=== PATIENT | female | born 1955 | race Caucasian/White ===

== ENCOUNTER → 2019-07-02 10:29 | Outpatient (CLI) | payer MEDICARE, SELFPAY ==
--- NOTE | ~2019-07-02 | MM_ITS ---
EXAMINATION: MM screening deborah RT w smooth HISTORY: Screening right mammogram, history of left mastectomy TECHNIQUE: Craniocaudal and mediolateral oblique 3-D tomosynthesis images were obtained and synthetic 2-D images were generated. CAD analysis was submitted and interpreted. COMPARISON: 06/26/2018, 06/30/2017, 06/14/2016 BREAST PARENCHYMAL COMPOSITION: There are scattered areas of fibroglandular density. FINDINGS: There is no evidence of suspicious mass, calcification, or architectural distortion to sugg est malignancy. There has been no suspicious interval change. IMPRESSION: 1. No mammographic evidence of malignancy. 2. Recommend routine screening mammography in one year. BI-RADS Category 1: Negative Reviewed, dictated and finalized at location A. SLATOR/INTERPRETER
== END ==
PROVIDERS: Visit Provider Nurse Practitioner Obstetrics & Gynecology
DX: Z12.31 Encounter for screening mammogram for malignant neoplasm of breast (principal)
CPT/HCPCS: 77063; 77067

== ENCOUNTER 2020-05-22 10:12 | Emergency (ER) | payer MEDICARE, SELFPAY ==
[2020-05-22] VITALS (14 sets, daily range): BP systolic 110–138; BP diastolic 58–82; PULSE 62–98; RESP 11–27; TEMP 36.6–36.8; O2SAT 94–100
--- NOTE | ~2020-05-22 | XR_ITS ---
EXAMINATION: XR humerus RT, XR shoulder RT min 2V EXAM DATE: 05/22/2020 10:43 INDICATION: Initial encounter following injury, with pain of the right humerus, shoulder. TECHNIQUE: Frontal, oblique projections of the right shoulder. 2 projections of the right humerus. T here are no prior studies for comparison. FINDINGS: There is anterior inferior and medial humeral head dislocation. No acute fracture line edwin ntified although sometimes there can be an impaction deformity of the humeral head. The shaft of the humerus is unremarkable. 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 IMPRESSION: 1. Anterior inferior, and medial dislocation of the right humeral head. Reviewed, dictated and finalized at location B. LLIGENCE ANALYST IMPRESSION: 1. Anterior inferior, and medial dislocation of the right humeral head.
--- NOTE | ~2020-05-22 | XR_ITS ---
EXAMINATION: XR shoulder RT min 2V EXAM DATE: 05/22/2020 11:51 INDICATION: post reduction. TECHNIQUE: Frontal, Y projections right shoulder. Comparison is made to prior examination from right shoulder. FINDINGS: Previously seen dislocation has been reduced, humeral head is in expected position. Possib le Hill-Sachs compression deformity. Moderate acromioclavicular osteoarthritis. IMPRESSION: Status post right humeral head reduction. Possible Hill-Sachs impaction fracture. Reviewed, dictated and finalized at location B. D ACTIVATION MANAGER IMPRESSION: Status post right humeral head reduction. Possible Hill-Sachs imp action fracture.
[2020-05-22] MEDS: ONDANSETRON INJ 4 MG/2 ML VIAL ×2 (10:50→13:14)
[2020-05-22] MEDS: LORazepam INJ (*CRX) 2 MG/ML VIAL (10:50)
[2020-05-22] MEDS: HYDROmorphone HCL INJ (*CRX) 1 MG/ML SYR (10:50)
[2020-05-22] MEDS: PROPOFOL IV EMULSION 200 MG/20 ML VIAL 100 MG IV PUSH (11:25)
--- NOTE | 2020-05-22 11:32 | PC.NURSE ---
consent signed and placed in chart propofal 50 mg first dose at 1125 2nd dose at 1127 shouolder reduced at 1128
--- NOTE | 2020-05-22 11:35 | PC.NURSE ---
pt maintaining airway, showing spontaneous respirations, no interventions needed at this time
--- NOTE | 2020-05-22 12:18 | ED.GENADULT ---
HPI - General Adult General Chief complaint: Extremity Injury, Upper <Zac Hobbs PA-C - Last Filed: 05/22/20 12:28> Stated complaint: FALL,L SHOULDER PAIN <Zac Hobbs PA-C - Last Filed: 05/22/20 12:28> Time Seen by Provider: 05/22/20 10:20 <Zac Hobbs PA-C - Last Filed: 05/22/20 12:28> Source: patient, family and EMS <Zac Hobbs PA-C - Last Filed: 05/22/20 12:28> Mode of arrival: EMS <Zac Hobbs PA-C - Last Filed: 05/22/20 12:28> Limitations: no limitations <Zac Hobbs PA-C - Last Filed: 05/22/20 12:28> History of Present Illness HPI narrative: Patient 65-year-old female who presents to emergency department for evaluation of right shoulder injury patient tripped while walking landing injuring the right shoulder denies other injuries or complaints specifically no syncope loss of consciousness patient notes severe pain to the right shoulder patient was given fentanyl in route with minimal improvement patient also notes nausea. <Zac Hobbs PA-C - Last Filed: 05/22/20 12:28> Related Data Home medications: Home Medications Medication Instructions Recorded Confirmed cholecalciferol (vitamin D3) 50 50 mcg PO DAILY 07/02/19 12/24/19 mcg (2,000 unit) capsule <Zac Hobbs PA-C - Last Filed: 05/22/20 12:28> Allergies/adverse reactions: Allergies Allergy/AdvReac Type Severity Reaction Status Date / Time hydromorphone Allergy Unknown hypotension Verified 05/22/20 10:16 morphine AdvReac Mild Other Verified 05/22/20 10:16 <Zac Hobbs PA-C - Last Filed: 05/22/20 12:28> Review of Systems Review of Systems: All systems reviewed & are unremarkable except as noted in HPI and below <Zac Hobbs PA-C - Last Filed: 05/22/20 12:28> PMFSH Past Medical History Medical History: Medical History Combined hyperlipidemia Essential (primary) hypertension History of breast cancer History of diverticulitis OAB (overactive bladder) Vitamin D deficiency <Zac Hobbs PA-C - Last Filed: 05/22/20 12:28> Surgical History Surgical History: Surgical History H/O mastectomy History of colon surgery <Zac Hobbs PA-C - Last Filed: 05/22/20 12:28> Family History Family History: Family History (Updated 01/06/14 @ 07:13 by DOCTOR UNKNOWN) Mother Hypertension Father Family history of celiac disease Other Family history of neuropathy <Zac Hobbs PA-C - Last Filed: 05/22/20 12:28> Social History Social History: Social History Smoking status: Never smoker Alcohol intake: current Gender identity (if verbalized by the patient): Female <Zac Hobbs PA-C - Last Filed: 05/22/20 12:28> Exam Narrative: Exam Narrative: GENERAL: Well-appearing, well-nourished, and in no acute distress. HEAD: Normocephalic, atraumatic. EYES: PERRLA and EOMI. ENT: Nares clear, no rhinorrhea or epistaxis. Mucous membranes moist. NECK: Supple. No adenopathy or masses. CHEST: Clear to auscultation. No respiratory distress. No wheezes rales or rhonchi HEART: Regular rate and rhythm. No murmur heard. Normal peripheral pulses. ABDOMEN: Soft, nontender, nondistended EXTREMITIES: Deformity at the shoulder remainder of extremity nontender SKIN: Warm, dry, no rash. NEURO: No focal deficits. Alert and oriented x3. Neurovascularly intact. Capillary refill less than 3 seconds uncomfortable PSYCH: Normal mood and affect. <Zac Hobbs PA-C - Last Filed: 05/22/20 12:28> Course Course Emergency Course: Patient in the room aware of case findings treatment plan diagnosis resting comfortably post reduction patient was sedated with no complications <Zac Hobbs PA-C - Last Filed: 05/22/20 12:28> HOSTESS HOST/PA Physicia
== END 2020-05-22 13:16 | disposition home or self-care (01) ==
PROVIDERS: Emergency Provider Emergency Medicine; PCP Family Medicine
DX: S43.014A Anterior dislocation of right humerus, initial encounter (principal); S43.034A Inferior dislocation of right humerus, initial encounter; E78.2 Mixed hyperlipidemia; I10 Essential (primary) hypertension; Z85.3 Personal history of malignant neoplasm of breast; N32.81 Overactive bladder; E55.9 Vitamin D deficiency, unspecified; Z90.10 Acquired absence of unspecified breast and nipple; W01.0XXA Fall on same level from slipping, tripping and stumbling without subsequent striking against object, initial encounter
CPT/HCPCS: 23650; 73030; 73060; 96374; 96375; 96376; 99285; J1170; J2060; J2405; J2704

== ENCOUNTER 2020-06-30 13:58 | Outpatient (CLI) | payer MEDICARE, SELFPAY ==
--- NOTE | 2020-06-30 09:13 | ECG_ITS ---
Measurements Intervals [place] Rate: 64 P: 48 NM: 169 QRS: -1 QRSD: 81 T: 41 QT: 386 QTc: 400 Interpretive Statements SINUS RHYTHM POSSIBLE LEFT ATRIAL ENLARGEMENT INCOMPLETE RIGHT BUNDLE BRANCH BLOCK DELAYED PRECORDIAL R/S TRANSITION BASELINE ARTIFACT- I, II, III, AVR, AVL, AVF BORDERLINE ECG Electronically Signed On 06-30-2020 12:00:58 SHINGLE SAWYER by Devin Narvaez D.O.
[2020-06-30 10:32] LABS: INR 0.8; Prothrombin Time 11.9 Seconds (11.1-14.7)
[2020-06-30 10:33] LABS: Partial Thromboplastin Time 26.8 SECONDS (22.3-36.8)
== END 2020-06-30 13:59 | disposition home or self-care (01) ==
LOC: ANHSURGERY 07-24 13:58
PROVIDERS: PCP Family Medicine; Visit Provider Urology
DX: Z01.818 Encounter for other preprocedural examination (principal); I10 Essential (primary) hypertension
CPT/HCPCS: 36415; 85610; 85730; 86850; 86900; 86901; 87086; 93005

== ENCOUNTER → 2020-07-07 00:12 | Outpatient (CLI) | payer MEDICARE, SELFPAY ==
[2020-07-07 22:51] LABS: SARS-CoV-2 RNA PCR Negative
== END ==
PROVIDERS: PCP Family Medicine; Visit Provider Urology
DX: Z01.812 Encounter for preprocedural laboratory examination (principal); Z20.822 Contact with and (suspected) exposure to COVID-19
CPT/HCPCS: C9803; U0003; U0005

== ENCOUNTER 2020-07-10 00:31 | Day surgery (SDC) | payer MEDICARE, SELFPAY ==
[2020-06-30 08:21] VITALS: BMI 28.3
--- NOTE | 2020-07-01 09:26 | P.HP_ITS ---
H&P: HPI History of Present Illness Date/Time: 07/01/20 09:26 Chief Complaint: POP.NIKA Narrative: Ludy Woodson is a 65 year old female with POP/NIKA Review of Systems Review of Systems: All systems reviewed & are unremarkable except as noted in HPI and below PMFSH Past Medical History Medical History Combined hyperlipidemia Essential (primary) hypertension History of breast cancer History of diverticulitis Hypothyroidism, unspecified OAB (overactive bladder) Vitamin D deficiency Surgical History Surgical History H/O mastectomy left sided History of colon surgery Family History Family History Mother Hypertension Father Family history of celiac disease Other Family history of neuropathy Social History Social History Smoking status: Never smoker Alcohol intake: current Substance use: never Additional living arrangements comments: Gender identity (if verbalized by the patient): Female Spiritual care concerns: No Meds Home Medications and Allergies Home Medications Medication Instructions Recorded Confirmed Type cholecalciferol (vitamin D3) 50 50 mcg PO DAILY 07/02/19 06/30/20 History mcg (2,000 unit) capsule hydrocodone-acetaminophen [[place]] 1 tablet PO Q6H PRN #10 tablet 05/22/20 06/30/20 Rx amlodipine 5 mg PO HS 06/30/20 06/30/20 History levothyroxine 75 mcg PO QAM 06/30/20 06/30/20 History lisinopril 20 mg PO QAM 06/30/20 06/30/20 History lovastatin 10 mg PO HS 06/30/20 06/30/20 History magnesium oxide 400 mg PO DAILY 06/30/20 06/30/20 History metoprolol tartrate 100 mg PO HS 06/30/20 06/30/20 History Allergies Allergy/AdvReac Type Severity Reaction Status Date / Time No Known Allergies Allergy Verified 06/30/20 08:13 Exam Const: General: cooperative and healthy appearing HENMT: Head: normal to inspection Eyes: General: appearance normal, both eyes and all related structures Resp: Effort & Inspection: normal respiratory effort and able to speak in complete sentences GI: Inspection: normal to inspection : Bimanual exam- vagina & uterus: Uterus displaced Bimanual Exam- Adnexa, other: cystocele Skin: General skin exam: normal color Neuro: General: patient oriented x3 Assessment and Plan Assessment and plan (1) Uterine prolapse: Code(s): N81.4 - Uterovaginal prolapse, unspecified Status: Acute Assessment and Plan: robotic Colpopexy (2) NIKA (stress urinary incontinence, female): Code(s): N39.3 - Stress incontinence (female) (male) Status: Acute Assessment and Plan: urethral sling
[2020-07-10] VITALS (17 sets, daily range): BP systolic 94–145; BP diastolic 51–71; PULSE 62–78; RESP 10–16; TEMP 36.2–36.6; O2SAT 94–100; BMI 27.2
--- NOTE | 2020-07-10 06:53 | WPDANESEPPF ---
Anes - Initial Pre Proc Eval Procedure: Operation Date: 07/10/20 07:30 Proposed Procedures p Robotic Sacrocolpopexy With Possible Sling - Emir Azevedo MD s Laparoscopic Supracervical Hysterectomy With Bilateral Salpingo-Oophorectomy - Ion Lindsey MD Date/Time: 07/10/20 06:53 Surgeon: Emir Azevedo MD Pre Op Diagnosis: Cystocele, Uterine Prolapse Patient Data Age: 65 Gender: F Height: 1.55 m Weight: 67.9 kg Allergies Allergy/AdvReac Type Severity Reaction Status Date / Time No Known Allergies Allergy Verified 07/10/20 06:20 Home Medications Medication Instructions Recorded Confirmed Type cholecalciferol (vitamin D3) 50 50 mcg PO DAILY 07/02/19 07/10/20 History mcg (2,000 unit) capsule hydrocodone-acetaminophen [[place]] 1 tablet PO Q6H PRN #10 tablet 05/22/20 07/10/20 Rx amlodipine 5 mg PO HS 06/30/20 07/10/20 History levothyroxine 75 mcg PO QAM 06/30/20 07/10/20 History lisinopril 20 mg PO QAM 06/30/20 07/10/20 History lovastatin 10 mg PO HS 06/30/20 07/10/20 History magnesium oxide 400 mg PO DAILY 06/30/20 07/10/20 History metoprolol tartrate 100 mg PO HS 06/30/20 07/10/20 History ECG: Date of Service: 06/30/20 Procedure(s): CA 12 lead EKG Accession Number(s): [id number] cc: ~ Measurements Intervals [place] Rate: 64 P: 48 SD: 169 QRS: -1 QRSD: 81 T: 41 QT: 386 QTc: 400 Interpretive Statements SINUS RHYTHM POSSIBLE LEFT ATRIAL ENLARGEMENT INCOMPLETE RIGHT BUNDLE BRANCH BLOCK DELAYED PRECORDIAL R/S TRANSITION BASELINE ARTIFACT- I, II, III, AVR, AVL, AVF BORDERLINE ECG Electronically Signed On 06-30-2020 12:00:58 ENTREPRENEURSHIP PROGRAM DIRECTOR by Devin Narvaez D.O. Patient hx anesthesia problems: none Family hx anesthesia problems: none PMFSH Past Medical History Medical History Combined hyperlipidemia Essential (primary) hypertension History of breast cancer History of diverticulitis Hypothyroidism, unspecified OAB (overactive bladder) Vitamin D deficiency Surgical History Surgical History H/O mastectomy left sided History of colon surgery Family History Family History Mother Hypertension Father Family history of celiac disease Other Family history of neuropathy Social History Social History Smoking status: Never smoker Alcohol intake: current Substance use: never Living arrangements: with family Additional living arrangements comments: Gender identity (if verbalized by the patient): Female Spiritual care concerns: No Anes - Eval Final PreProcedure Day of Procedure 07/10/20 06:53 Patient weight: overweight Heart: regular rate and rhythm Lungs: clear to auscultation and normal air movement Airway: Mallampati scale class II Neurological: alert and oriented Last oral intake: >/= 8 hours ASA classification: III Emergent: no Anesthetic plan: proceed Anesthesia type and monitoring: general ETT Informed Consent: The patient's anesthetic plan and its attendant risks and benefits were discussed with the patient/family/POA. Questions were solicited and answers provided to the satisfaction of the patient/family/POA.
[2020-07-10] MEDS: ACETAMINOPHEN 500 MG TABLET 1000 MG PO (07:11)
[2020-07-10] MEDS: LACTATED RINGERS 1,000 ML 30 ML IV CONT ×2 (07:11→10:26)
[2020-07-10] MEDS: KETOROLAC 15 MG/ML VIAL (*BKC) IV PUSH (07:12)
--- NOTE | 2020-07-10 07:19 | WPDHPUPDATE1 ---
History and Physical Update Update Date/Time: 07/10/20 07:19 History and Physical has been reviewed, including an updated exam of the patient. There are NO changes in the patient's condition. Risks, benefits, and alternatives have been discussed and questions answered. Patient agrees to proceed with procedure.
--- NOTE | 2020-07-10 07:23 | WPDHPUPDATE1 ---
History and Physical Update Update Date/Time: 07/10/20 07:23 History and Physical has been reviewed, including an updated exam of the patient. There are NO changes in the patient's condition. Risks, benefits, and alternatives have been discussed and questions answered. Patient agrees to proceed with procedure.
[2020-07-10] MEDS: metroNIDAZOLE 500 MG/ISO 100ML 500 MG/100 ML BAG 100 MG IVPB (07:30)
[2020-07-10] MEDS: ceFAZolin 2 GM/D5W 50 ML 2 GM/50 ML BAG IVPB (07:49)
[2020-07-10] MEDS: BUPIVACAINE/EPINEPHRINE 0.25% 50 ML VIAL 30 ML INFILTRATE (08:31)
--- NOTE | 2020-07-10 09:00 | P.OP_ITS ---
Procedure Note - Detailed Date of procedure: 07/10/20 Pre-op diagnosis: Cystocele, Uterine Prolapse Post-op diagnosis: same Procedure performed: Laparoscopic supracervical hysterectomy with bilateral salpingo oophorectomy. Description of procedure: The trocars were placed by Dr. Azevedo. An additional trocars placed in the left lower quadrant trocar site. A 5 mm trocar placed through a 5 mm skin incision made with a scalpel. It was done under direct visualization of the scope. The ureters were identified bilaterally after the patient was placed in a Trendelenburg position. The infundibulopelvic ligaments were isolated, cauterized and transected with LigaSure cautery in the area of the ovary. Moving around the ovary, in a bilateral fashion, the para ovarian tissue was cauterized, transected with LigaSure. The round ligament was cauterized and transected with LigaSure cautery. This was done in a bilateral fashion. The broad ligament was cauterized and transected in a stepwise fashion down to the uterine arteries. This was done in a bilateral fashion as well. The superior branches of the uterine artery were cauterized and transected with LigaSure cautery. Cervix was then transected in the upper 3rd of the body of t he cervix using monopolar cautery. The uterus was placed in endobag and sent off to the side in the abdomen. Anesthesia: GETA Surgeon: Ion Lindsey MD Estimated blood loss (mL): 20 Drains: No Packing: No Pathology: yes Complications: No immediate complications Condition: stable Disposition: PACU Findings: Atrophic uterus and ovaries. Normal appearing fallopian tubes. The ureters were clearly identified.
--- NOTE | 2020-07-10 10:24 | PM.PROC ---
Procedure Note - Detailed Date of procedure: 07/10/20 Pre-op diagnosis: Cystocele, Uterine Prolapse Uterine prolapse Stress urinary incontinence Post-op diagnosis: same Procedure performed: Robotic assisted laparoscopic sacral colpopexy Mid urethral sling (transobturator sling) Cystoscopy Description of procedure: Anesthesia: General She understood the risks of bleeding, infection, damage to surrounding organs, bowel injury, bowel obstruction, recurrence of prolapse, persistent or recurrent stress incontinence, mesh related complications including exposure and extrusion, diskitis, postoperative voiding dysfunction including incontinence and retention, hip and leg pain, dyspareunia, and she agrees to proceed. She was correctly identified and informed consent was obtained. She was brought to the operating room. She was given general anesthesia. She was placed in the dorsal lithotomy position. All pressure points were padded. She was given appropriate perioperative antibiotics. Time-out performed. I anesthetized the skin 3 fingerbreadths cephalad to the umbilicus. I incised the skin. I dissected down to locate the fascia. I grasped the fascia with Adam clamps. I entered the fascia sharply. I placed Vicryl sutures for later fascial closure. I placed a midline trocar. Under direct vision 2 additional trocars were placed on the right and left upper quadrant. She was placed in steep Trendelenburg and the robot was docked. Her stretching press operator performed the portion of the procedure and left the specimen and a sac which was extracted. I then sat at the console. With the Sizer in the vagina I created a plane on the anterior and posterior vaginal wall. This was done for several cm taking great care not to injure the vagina, bladder, or rectum. I introduced the mesh into the abdomen. I sewed the anterior leaflet of mesh on the anterior vaginal wall and posterior leaf of the mesh on the posterior vaginal wall with several Weston-Trace sutures taking great care not to go through and through. I then reflected the colon laterally. I opened up the posterior peritoneum over the sacral promontory. I carried this into the cul-de-sac. I kept the ureters lateral. I freed up the edges. I located the anterior longitudinal ligament of the sacrum. I tensioned the mesh appropriately. I did a vaginal exam to ensure prolapse reduction without undue tension. I then sewed the proximal leaflet of mesh onto the ligament with 3 sutures of 2 0 Weston-Trace. Next the mass was meticulously retroperitonealized with a running 2 0 Monocryl suture. I allowed the colon to go back into its normal anatomic location. There is no signs of any impingement or stricturing. The abdomen was exited. Fascia was closed. Skin was closed with Monocryl and glue. She was repositioned and prepped for urethral sling. I marked out the thigh incisions. I anesthetize the skin and made those incisions. I anesthetized the anterior vaginal wall over the mid urethra. I made a 1 cm incision. I dissected out laterally taking great care not to injure the urethra or the vaginal wall. I next passed the helical trocars to 1st on the left and then on the right. This was done from the thigh incision towards the vaginal incision. The sling was connected to the trocars and brought out through the thigh incision. I tensioned the sling appropriately. I cut and removed the plastic sheaths. I then closed the incision with 2 0 Vicryl. I then performed cystoscopy. The bladder is examined. There was no tumors, stones, foreign bodies, surgical artifact. Both ureters were seen to excrete clear yellow urine. There is no surgical artifact in the urethra. Catheter was then replaced. She was awakened and transferred to the PACU in stable condition. Anesthesia: GLMA Surgeon: Emir Azevedo MD Drains: Yes (Echeverria catheter) Packing: Yes Complications: No immediate complications Condition: stable Disposition: PACU
--- NOTE | 2020-07-10 12:22 | SUR.PHASEI ---
1210 - dr. olivo at bedside assessing EKG reading. no orders received at this time.
[2020-07-10] MEDS: ONDANSETRON INJ 4 MG/2 ML VIAL IV PUSH (12:38)
[2020-07-10] MEDS: fentaNYL CITRATE INJ (*CRX) 100 MCG/2 ML VIAL 25 MCG IV PUSH ×2 (12:42→12:46)
[2020-07-10] MEDS: oxyCODONE HCL (*CRX) 5 MG TAB IR PO (14:30)
--- NOTE | 2020-07-10 16:52 | SUR.PHASEII ---
1530 pt has been to the bathroom twice and has voided each time. pt feels well enough to go home, pt meets anesthesia requierement to be discharged
== END 2020-07-10 15:55 | disposition home or self-care (01) ==
PROVIDERS: Obstetrics & Gynecology; PCP Family Medicine; Visit Provider Urology
PROC: (CPT 57425; principal; 2020-07-10 07:30)
PROC: 0UT9FZZ Resection of Uterus, Via Natural or Artificial Opening With Percutaneous Endoscopic Assistance (ICD-10-PCS; CPT 58542; 2020-07-10 07:30)
DX: N81.4 Uterovaginal prolapse, unspecified (principal); N39.3 Stress incontinence (female) (male); N32.81 Overactive bladder; N83.8 Other noninflammatory disorders of ovary, fallopian tube and broad ligament; D25.9 Leiomyoma of uterus, unspecified; E03.9 Hypothyroidism, unspecified; Z85.3 Personal history of malignant neoplasm of breast; E55.9 Vitamin D deficiency, unspecified; I10 Essential (primary) hypertension; E78.2 Mixed hyperlipidemia; Z87.19 Personal history of other diseases of the digestive system; I45.10 Unspecified right bundle-branch block
CPT/HCPCS: 58542; 57425; 57288; S2900; 88307; A9270; C1771; C1781; C9803; J0690; J1100; J1170; J1885; J2250; J2405; J2704; J2710; J3010; J7030; J7120; U0003; U0005

== ENCOUNTER 2020-09-08 10:38 | Observation (INO) | payer MEDICARE, SELFPAY ==
[2020-09-08] VITALS (9 sets, daily range): BP systolic 100–118; BP diastolic 49–92; PULSE 75–87; RESP 15–20; TEMP 36.8–37.5; O2SAT 96–100; BMI 27.4
--- NOTE | ~2020-09-08 | XR_ITS ---
EXAMINATION: XR chest 1V portable DATE: 09/08/2020 11:27 INDICATION: Fever. Shortness of breath. TECHNIQUE: A single frontal view of the chest was obtained. COMPARISON: None. FINDINGS: There is mild scarring at the lung apices. No pleural effusion or pneumothorax. The heart s ize is normal. IMPRESSION: 1. Mild scarring at the lung apices. Reviewed, dictated and finalized at location A.
--- NOTE | ~2020-09-08 | CT_ITS ---
EXAMINATION: CT abdomen pelvis w con EXAM DATE: 09/08/2020 12:12 INDICATION: Diarrhea, fever. History diverticulitis. TECHNIQUE: Spiral CT of the abdomen and pelvis was performed following intravenous injection of 100 m L Omnipaque 350. Axial, coronal and sagittal images of the abdomen and pelvis were reviewed. The do se-length product (DLP) for this examination was 441.54 mGy-cm. The exposure was tailored according to patient size (auto mA exposure control), and iterative reconstruction (ASIR) was used as additiona l dose reduction technique. Comparison is made to prior examination from 07/21/2017. FINDINGS: There are 2 liver cysts, largest at the dome measuring 1.6 cm. The liver, spleen, adrenal glands and pancreas are otherwise unremarkable. Gallbladder is unremarkable. No biliary obstruction . Portal and splenic veins are patent. Kidneys enhance symmetrically. There is no hydronephrosis. Uterine atrophy or partial hysterectomy. The bladder is unremarkable. There is no retroperitoneal or pelvic lymphadenopathy. There is mild scattered arteriosclerotic disease. The appendix is normal. There is mild to moderate scattered colonic diverticulosis. There is no yas cent inflammatory change to suggest diverticulitis. The stomach and small bowel are unremarkable. Th ere is expected amount of colonic stool. No free intraperitoneal gas. The heart is normal in size . There are no pericardial or pleural effusions. The lung bases are unremarkable. There are no ost eoblastic or osteolytic lesions identified. Again left breast implant with capsular rupture. IMPRESSION: 1. No acute intra-abdominal findings. 2. Mild to moderate colonic diverticulosis. 3. Left breast implant with evidence of capsular rupture, unchanged. Reviewed, dictated and finalized at location A.
[2020-09-08 11:10] LABS: Basophils Percent Auto 0.3 % (0.2-1.2); Eosinophils Absolute Auto 0.3 K/mm3 (0-0.3); Eosinophils Percent Auto 8.3 % (0-4.4); Hematocrit 36.4 % (37.0-47.0); Hemoglobin 12.2 g/dL (12.0-15.0); Immature Granulocyte Absolute 0.01 K/mm3 (0.00-0.031); Immature Granulocyte Percent A 0.3 % (0-0.5); Lymphocytes Absolute Auto 0.81 K/mm3 (0.9-3.2); Lymphocytes Percent Auto 23.2 % (18.3-44.2); Mean Corpuscular HGB Conc 33.5 g/dl (32-36); Mean Corpuscular Hemoglobin 31.5 pg (26-34); Mean Corpuscular Volume 94.1 fl (80-100); Mean Platelet Volume 10.3 fl (7.4-10.4); Monocytes Absolute Auto 0.3 K/mm3 (0.1-0.6); Monocytes Percent Auto 9.5 % (2.6-8.5); Neutrophils Percent Auto 58.4 % (45.5-73.1); Platelet Count Result 123 k/mm3 (150-375); Red Blood Count 3.87 M/mm3 (4.2-5.4); Red Cell Distribution Width 12.6 % (11.5-14.5); White Blood Count 3.5 K/mm3 (4.5-10.0)
--- NOTE | 2020-09-08 11:16 | ED.FEVER ---
HPI - Fever General Chief Complaint: Fever <JA Pace Last Filed: 09/08/20 14:05> Stated Complaint: fever and chills <JA Pace Last Filed: 09/08/20 14:05> Time Seen by Provider: 09/08/20 11:03 <JA Pace Last Filed: 09/08/20 14:05> Source: patient <JA Pace Last Filed: 09/08/20 14:05> Mode of arrival: ambulatory <JA Pace Last Filed: 09/08/20 14:05> Limitations: no limitations <JA Pace Last Filed: 09/08/20 14:05> History of Present Illness HPI Narrative: This is a 65-year-old female that presents the emergency department for fevers x3 days. Also reports associated diarrhea and generalized weakness. Reports some nausea. Denies cough, congestion, sore throat, vomiting, hematochezia, dysuria, or hematuria. <JA Pace Last Filed: 09/08/20 14:05> Related Data Home Medications: Home Medications Medication Instructions Recorded Confirmed cholecalciferol (vitamin D3) 50 50 mcg PO DAILY 07/02/19 07/10/20 mcg (2,000 unit) capsule magnesium oxide 400 mg PO DAILY 06/30/20 07/10/20 <JA Pace Last Filed: 09/08/20 14:05> Allergies/Adverse Reactions: Allergies Allergy/AdvReac Type Severity Reaction Status Date / Time No Known Allergies Allergy Verified 09/08/20 11:00 <JA Pace Last Filed: 09/08/20 14:05> Review of Systems Review of Systems: Narrative: CONSTITUTIONAL: Reports fever, chills ENT: Denies rhinorrhea, congestion, sore throat RESPIRATORY: Denies cough GASTROINTESTINAL: Reports nausea and diarrhea. Denies abdominal pain, vomiting GENITOURINARY: Denies dysuria or hematuria. NEUROLOGIC: Reports generalized weakness. <JA Pace Last Filed: 09/08/20 14:05> All systems reviewed & are unremarkable except as noted in HPI and below <Kenyetta Orellana PA-C - Last Filed: 09/08/20 14:05> [facility] Past Medical History Medical History: Medical History Combined hyperlipidemia Essential (primary) hypertension History of breast cancer History of diverticulitis Hypothyroidism, unspecified OAB (overactive bladder) Vitamin D deficiency <Kenyetta Orellana PA-C - Last Filed: 09/08/20 14:05> Surgical History Surgical History: Surgical History H/O mastectomy left sided History of colon surgery <Kenyetta Orellana PA-C - Last Filed: 09/08/20 14:05> Family History Family History: Family History Mother Hypertension Father Family history of celiac disease Other Family history of neuropathy <Kenyetta Orellana PA-C - Last Filed: 09/08/20 14:05> Social History Social History: Social History Smoking status: Never smoker Alcohol intake: current Substance use: never Additional living arrangements comments: Gender identity (if verbalized by the patient): Female Spiritual care concerns: No <Kenyetta Orellana PA-C - Last Filed: 09/08/20 14:05> Exam Narrative: Exam Narrative: GENERAL: Well-appearing, well-nourished, and in no acute distress. HEAD: Normocephalic, atraumatic. EYES: EOMI. CHEST: Clear to auscultation. No respiratory distress. No wheezes rales or rhonchi HEART: Regular rate and rhythm. No murmur heard. Normal peripheral pulses. ABDOMEN: Soft, nontender, nondistended, normal active bowel sounds. EXTREMITIES: Normal range of motion. No edema. SKIN: Warm, dry, no rash. NEURO: No focal deficits. Alert and oriented x3. PSYCH: Normal mood and affect <Kenyetta Orellana PA-C - Last Filed: 09/08/20 14:05> Course EXPERIMENTAL TECHNICIAN/PA Physician Supervision For this patient encounter, I reviewed the EXPERIMENTAL TECHNICIAN or PA documentation, treatment plan, and medical decision making; and I
[2020-09-08 11:34] LABS: Alanine Aminotransferase 30 U/L (4-35); Albumin Level 3.7 g/dL (3.5-5.1); Alkaline Phosphatase 57 U/L (38-126); Anion Gap 3 mmol/L (8-16); Aspartate Amino Transferase 45 U/L (14-36); Bilirubin,Total 0.2 mg/dL (0.2-1.3); Blood Urea Nitrogen 36 mg/dL (7-17); Calcium 8.2 mg/dL (8.4-10.2); Carbon Dioxide 27 mmol/L (22-30); Chloride 102 mmol/L (98-107); Estimated CRCL calculation 30 ml/min; Estimated Glomerular Filt Rate 38; Glucose 90 mg/dL (65-105); Lipase 49 U/L (23-300); Sodium 132 mmol/L (137-145)
[2020-09-08] MEDS: SODIUM CHLORIDE 0.9% IV 1,000 ML 999 ML IV CONT ×2 (11:58→13:30)
[2020-09-08 12:02] LABS: Add Urine Microscopic? YES; Appearance Urine Cloudy (Clear); Bacteria Urine Trace /hpf; Bilirubin Urine Negative (Negative); Blood Urine Negative (Negative); Color Urine Yellow (Yellow); Glucose Urine UA Negative (Negative); Ketones Urine Trace mg/dL (Negative); Leukocyte Esterase Ur Negative LEU/UL (Negative); Mucus Urine Rare /lpf; Nitrate Urine Negative (Negative); Protein Urine 1+ mg/dL (Negative); RBC Urine 0-2 /hpf (0-2); Squamous Epithelial Cell Urine Rare /hpf (Few); Urobilinogen Urine Negative mg/dL (<2.0); WBC Urine 0-3 /hpf
--- NOTE | 2020-09-08 14:40 | PC.NURSE ---
This patient, Ludy Woodson, was admitted to 3 [facility] Surg Room 310-01. Patient/family oriented to hospital policies and general routines including ID bracelet, bed and alarms, visiting hours, pain management, procedures, bathroom and other care routines, personal items, smoking policy, room service/diet, and visiting hours. Information on how to activate the Rapid Response Team has been discussed. Patient/Family are encouraged to report perceived risks to care and to ask questions if they do not understand what they are told or what they should do.
[2020-09-08] MEDS: SODIUM CHLORIDE 0.9% IV 1,000 ML 125 ML IV CONT ×2 (14:59→23:27)
--- NOTE | 2020-09-08 21:00 | PM.IMHP ---
H&P: HPI History of Present Illness Date/Time: 09/08/2020 21:00 Chief Complaint: Fever. Narrative: This is a 65-year-old female with hypertension, hypothyroidism, hyperlipidemia, and history of breast cancer who presented to the emergency department earlier today via private vehicle from home for evaluation of a fever. Last weekend she felt a bit more tired than usual and since Friday she has really not felt well with multiple symptoms including generalized malaise, weakness, diarrhea, decreased appetite, and fever up to 101?. She has been taking Tylenol for his symptoms with some improvement however she came in today because she is just not getting better. In the emergency department her creatinine was double than what it typically runs and she is being admitted for IV hydration. She denies headache, neck ache, sinus congestion, rhinorrhea, otalgia, odynophagia, chest pain, cough, and shortness of breath. Review of Systems Review of Systems: Narrative: Twelve systems were reviewed with pertinent positives and negatives as per HPI. No anosmia or dysgeusia. She denies sick contacts. No known exposure to those positive for COVID-19. She received her Sree and Sree COVID vaccine approximately 3 weeks ago. She had some nausea and decreased appetite but no vomiting. Except as documented, all other systems were reviewed and are negative. [facility] Past Medical History Medical History (Updated 09/09/20 @ 00:19 by Naheed Conrad PA-C) Cancer of left breast Combined hyperlipidemia Essential (primary) hypertension History of breast cancer History of diverticulitis (~07/2017) Perforated diverticulitis. Hypothyroidism, unspecified Overactive bladder Vitamin D deficiency Surgical History Surgical History (Updated 09/09/20 @ 00:14 by Naheed Conrad PA-C) History of arthroscopy of right shoulder Patient reports large rotator cuff tear which was unable to be repaired. She also had bone spurs removed. History of bladder suspension procedure (~07/2020) Sacral colpopexy and transobturator sling for urinary incontinence. History of laparoscopy (~07/2017) With peritoneal irrigation and drain placement for perforated diverticulitis. History of left mastectomy History of tubal ligation Family History Family History Mother Hypertension Father Family history of celiac disease Other Family history of neuropathy Social History Social History (Updated 09/09/20 @ 00:17 by Naheed Conrad PA-C) Social History: Surrogate decision maker: Gary Woodson, . Code status: Full code. Smoking status: Never smoker Alcohol intake: never Substance use: never Additional living arrangements comments: Resides in [place] with her . 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 Gender identity (if verbalized by the patient): Female Spiritual care concerns: No Meds Home Medications and Allergies Home Medications Medication Instructions Recorded Confirmed Type cholecalciferol (vitamin D3) 50 50 mcg PO DAILY 07/02/19 09/08/20 History mcg (2,000 unit) capsule magnesium oxide 400 mg PO DAILY 06/30/20 09/08/20 History amlodipine 5 mg PO HS 09/08/20 09/08/20 History levothyroxine 75 mcg PO DAILY 09/08/20 09/08/20 History lisinopril 20 mg PO DAILY 09/08/20 09/08/20 History lovastatin 10 mg PO HS 09/08/20 09/08/20 History metoprolol tartrate 100 mg PO HS 09/08/20 09/08/20 History Allergies Allergy/AdvReac Type Severity Reaction Status Date / Time No Known Allergies Allergy Verified 09/08/20 11:00 Vital Signs Vital Signs - 24 hr 09/08/20 10:54 09/08/20 11:50 09/08/20 11:52 Temperature 98.2 F Pulse Rate 75 75 76 Respiratory Rate 15 Blood Pressure 108/63 101/56 L 118/92 H Pulse Oximetry 99 09/08/20 11:54 09/08/20 13:10 09/08/20 14:24 Temperature Pulse Rate 87 87 75
[2020-09-09] VITALS: BP 98/49; PULSE 77; RESP 18; TEMP 36.7; O2SAT 94
[2020-09-09] MEDS: diphenhydrAMINE HCl CAP 25 MG CAPSULE PO (00:21)
[2020-09-09] MEDS: LOVASTATIN 10 MG TABLET PO (00:42)
[2020-09-09] MEDS: LEVOTHYROXINE SODIUM 75 MCG TABLET PO (06:03)
[2020-09-09 06:27] LABS: Hematocrit 30.5 % (37.0-47.0); Mean Corpuscular HGB Conc 32.8 g/dl (32-36); Mean Corpuscular Hemoglobin 30.7 pg (26-34); Mean Corpuscular Volume 93.6 fl (80-100); Mean Platelet Volume 10.4 fl (7.4-10.4); Platelet Count Result 122 k/mm3 (150-375); Red Blood Count 3.26 M/mm3 (4.2-5.4); Red Cell Distribution Width 12.4 % (11.5-14.5); White Blood Count 2.6 K/mm3 (4.5-10.0)
[2020-09-09 06:58] LABS: Anion Gap 3 mmol/L (8-16); Blood Urea Nitrogen 16 mg/dL (7-17); CRP 0.7 mg/dL (<1.0); Calcium 8.2 mg/dL (8.4-10.2); Carbon Dioxide 23 mmol/L (22-30); Chloride 113 mmol/L (98-107); Estimated CRCL calculation 59 ml/min; Estimated Glomerular Filt Rate > 60; Glucose 90 mg/dL (65-105); Magnesium 1.9 mg/dL (1.6-2.3); Potassium 4.6 mmol/L (3.4-5.0); Sodium 139 mmol/L (137-145)
[2020-09-09 08:00] VITALS: BP 103/61; PULSE 73; RESP 20; TEMP 37.3; O2SAT 99
[2020-09-09] MEDS: CHOLECALCIFEROL 1,000 UNITS TABLET 2000 UNITS PO (09:17)
[2020-09-09] MEDS: MAGNESIUM OXIDE 400 MG TABLET PO (09:17)
[2020-09-09 11:04] LABS: Free T4 Free Thyroxine Reflex 0.91 ng/dL (0.78-2.19)
--- NOTE | 2020-09-09 11:04 | PM.DS ---
DS: Admitting Diagnosis Admitting Diagnosis Admitting Diagnosis: Dehydration DS: Discharge Diagnosis Discharge Diagnosis (1) Dehydration: Code(s): E86.0 - Dehydration Status: Acute (2) Acute kidney injury: Code(s): N17.9 - Acute kidney failure, unspecified Status: Acute (3) COVID-19 ruled out by laboratory testing: Code(s): Z20.822 - Contact with and (suspected) exposure to COVID-19 Status: Acute (4) Essential (primary) hypertension: Code(s): I10 - Essential (primary) hypertension Status: Chronic (5) Hypothyroidism, unspecified: Qualifiers: Hypothyroidism type: unspecified Qualified Code(s): E03.9 - Hypothyroidism, unspecified Code(s): E03.9 - Hypothyroidism, unspecified Status: Chronic (6) Pancytopenia: Code(s): D61.818 - Other pancytopenia Status: Acute DS: Summary Hospital Course Reason for hospitalization: Dehydration Hospital Course: Date of admission: 09/08/2020 Date of discharge: 09/09/2020 Ludy Woodson is a 65-year-old female with history of hypertension, hypothyroidism, hyperlipidemia, and history of breast cancer who presented to the emergency department on 09/08/2020 with complaints of fever up to 101?, malaise, diarrhea, poor appetite, and nausea. Her symptoms began approximately 5 days prior to presentation. Presentation to the emergency department, her vital signs were stable and she was afebrile, she had mild leukopenia and thrombocytopenia, mild hyponatremia, and elevated BUN and creatinine from baseline, urinalysis was not concerning for UTI, CXR showed mild scarring at the lung apices, and CT abdomen/pelvis showed no acute intra-abdominal findings. She was admitted to hospitalist service for further evaluation and management. She was felt to have a mild viral illness based on clinical symptoms and laboratory findings. Due to her poor appetite and illness, she was dehydrated, which was evident by her acute kidney injury, which was prerenal in etiology. She was rehydrated with IV fluids overnight, and her BUN creatinine normalized, as did her sodium. She tested negative for COVID-19 on 09/08/2020. On repeat labs, she was found to have mild pancytopenia, which was likely due to acute viral illness. I discussed these findings with her and she may follow-up with her PCP for repeat CBC upon resolution of illness. Her chronic conditions including hypothyroidism and hypertension were monitored and managed with her typical home regimen. Her viral symptoms improved and she began feeling much better after IV fluid rehydration. She was eager for discharge home given her improvement of symptoms. Given her overall improvement, she was determined to no longer require inpatient care and was felt to be stable for discharge. We discussed worrisome signs and symptoms for which to return and she was educated on her medications. She was discharged in hemodynamically stable condition on 09/09/2020. Status at Discharge Overall status at discharge: patient is progressing back to baseline Time Spent with Patient Time attestation: Total time spent providing and/or coordinating discharge services: 45 minutes Time spent: Greater than 30 minutes Exam Narrative: Exam Narrative: Ms. Woodson is a well-nourished, well-appearing 65-year-old female who is lying semi recumbent in bed. She appears comfortable and is in NARD. Neuro: awake, alert and oriented x4, speech clear, no focal neuro deficits noted HEENMT: normocephalic, atraumatic, EOMI, sclerae anicteric, moist oral mucosa, tongue midline, nares patent Neck: supple, no lymphadenopathy Respiratory: clear to auscultation bilaterally, nonlabored breathing Cardio: regular rate, regular rhythm with S1-S2 Abdomen: nondistended, normoactive bowel sounds, soft, nontender to palpation, no rigidity or guarding Extremities: no edema, erythema, cyanosis, clubbing, or tenderness to palpation, DP pulses
[2020-09-09 12:06] LABS: Total Triiodothyronine (T3) 0.77 NG/ML (0.97-1.69)
[2020-09-09 19:15] LABS: SARS-CoV-2 RNA PCR Negative
== END 2020-09-09 11:50 | disposition home or self-care (01) ==
LOC: ANHED 14:05 → ANH3MEDSUR 14:14
PROVIDERS: Physician Assistant; Admitting Provider Family Medicine; Emergency Provider Emergency Medicine; PCP Family Medicine; Visit Provider Physician Assistant
DX: E86.0 Dehydration (principal); N17.9 Acute kidney failure, unspecified; Z20.822 Contact with and (suspected) exposure to COVID-19; I10 Essential (primary) hypertension; E03.9 Hypothyroidism, unspecified; D61.818 Other pancytopenia; E78.5 Hyperlipidemia, unspecified; Z85.3 Personal history of malignant neoplasm of breast
CPT/HCPCS: 36415; 71045; 74177; 80048; 80053; 81001; 83690; 83735; 84439; 84443; 84480; 85025; 85027; 86140; 96360; 96361; 99285; A9270; C9803; G0378; J7030; Q9967; U0003; U0005

== ENCOUNTER → 2020-12-01 12:59 | Outpatient (CLI) | payer MEDICARE, SELFPAY ==
--- NOTE | ~2020-12-01 | MM_ITS ---
EXAMINATION: MM scrn deborah implant BI w smooth HISTORY: Screening mammogram TECHNIQUE: Craniocaudal and mediolateral oblique 3-D tomosynthesis images with implant displacement a nd synthetic 2-D images were generated. Craniocaudal and mediolateral oblique views of the breasts wi thout implant displacement were obtained using full field digital mammography. CAD analysis was submi tted and interpreted. COMPARISON: Comparison to multiple prior studies sequentially, with oldest reviewed study dated 06/09. BREAST PARENCHYMAL COMPOSITION: There are scattered areas of fibroglandular density. FINDINGS: There is an implant in the left breast with only minimal residual breast parenchyma status post prior mastectomy for breast cancer. There is no evidence of suspicious mass, calcification, or a rchitectural distortion to suggest malignancy in either breast. There has been no suspicious interval change. IMPRESSION: 1. No mammographic evidence of malignancy. 2. Recommend routine screening mammography in one year. BI-RADS Category 1: Negative Reviewed, dictated and finalized at location A.
== END ==
PROVIDERS: PCP Nurse Practitioner; Visit Provider Nurse Practitioner
DX: Z12.31 Encounter for screening mammogram for malignant neoplasm of breast (principal)
CPT/HCPCS: 77063; 77067

== ENCOUNTER 2020-12-22 10:12 | Outpatient (CLI) | payer MEDICARE, SELFPAY ==
[2020-12-22 11:02] LABS: Basophils Percent Auto 0.8 % (0.2-1.2); Eosinophils Absolute Auto 0.2 K/mm3 (0-0.3); Eosinophils Percent Auto 3.1 % (0-4.4); Hematocrit 35.8 % (37.0-47.0); Hemoglobin 11.4 g/dL (12.0-15.0); Immature Granulocyte Absolute 0.01 K/mm3 (0.00-0.031); Immature Granulocyte Percent A 0.2 % (0-0.5); Lymphocytes Absolute Auto 1.16 K/mm3 (0.9-3.2); Lymphocytes Percent Auto 22.6 % (18.3-44.2); Mean Corpuscular HGB Conc 31.8 g/dl (32-36); Mean Corpuscular Hemoglobin 30.7 pg (26-34); Mean Corpuscular Volume 96.5 fl (80-100); Mean Platelet Volume 9.7 fl (7.4-10.4); Monocytes Absolute Auto 0.5 K/mm3 (0.1-0.6); Monocytes Percent Auto 9.9 % (2.6-8.5); Neutrophils Absolute Auto 3.3 K/mm3 (1.3-6.7); Neutrophils Percent Auto 63.4 % (45.5-73.1); Platelet Count Result 228 k/mm3 (150-375); Red Blood Count 3.71 M/mm3 (4.2-5.4); Red Cell Distribution Width 12.8 % (11.5-14.5); White Blood Count 5.1 K/mm3 (4.5-10.0)
[2020-12-22 11:13] LABS: Alanine Aminotransferase 33 U/L (4-35); Albumin Level 4.2 g/dL (3.5-5.1); Alkaline Phosphatase 63 U/L (38-126); Anion Gap 7 mmol/L (8-16); Aspartate Amino Transferase 43 U/L (14-36); Bilirubin,Total 0.4 mg/dL (0.2-1.3); Blood Urea Nitrogen 17 mg/dL (7-17); Calcium 9.3 mg/dL (8.4-10.2); Carbon Dioxide 28 mmol/L (22-30); Chloride 102 mmol/L (98-107); Cholesterol 182 mg/dL (0-200); Estimated Glomerular Filt Rate > 60; Glucose 91 mg/dL (65-110); HDL Direct 48 mg/dL; Potassium 4.2 mmol/L (3.4-5.0); Sodium 137 mmol/L (137-145); Triglycerides 109 mg/dL (<150)
[2020-12-22 11:24] LABS: LDL Cholesterol Direct 99 mg/dL
[2020-12-23 01:29] LABS: Vitamin D 25 Hydroxy 86.4 ng/mL
== END 2020-12-22 10:13 | disposition home or self-care (01) ==
PROVIDERS: Visit Provider Nurse Practitioner
DX: E55.9 Vitamin D deficiency, unspecified (principal); E78.5 Hyperlipidemia, unspecified; E03.9 Hypothyroidism, unspecified; I10 Essential (primary) hypertension
CPT/HCPCS: 36415; 80053; 80061; 82306; 84443; 85025

== ENCOUNTER 2021-01-05 09:36 | Outpatient (CLI) | payer MEDICARE, SELFPAY ==
--- NOTE | ~2021-01-05 | MR_ITS ---
EXAMINATION: MR breast BI wo con INDICATION: Patient with left mastectomy and implant reconstruction with concern for implant rupture TECHNIQUE: Axial T2 FSE ASSET, axial VIBRANT, Sagittal T2 FSE, Sagittal T2 STIR silicone SAT, Sagitta l STIR Water suppression COMPARISON: None FINDINGS: RIGHT BREAST: No evidence of signal abnormalities in the axillary or internal mammary node distribut ions. LEFT BREAST: There are changes of left mastectomy with implant reconstruction. There is intracapsular rupture of the implant. There is an increase in number of nonpathologically enlarged lymph nodes of the left axilla and left upper mediastinum.] IMPRESSION: 1. Intracapsular rupture of the left breast implant. BI-RADS Category 2: Benign finding(s). Reviewed, dictated and finalized at location A.
== END 2021-01-05 09:37 | disposition home or self-care (01) ==
LOC: ANHIMG 09:38
PROVIDERS: Visit Provider Nurse Practitioner
DX: T85.43XA Leakage of breast prosthesis and implant, initial encounter (principal)
CPT/HCPCS: 77047

== ENCOUNTER 2021-01-19 13:20 | Emergency (ER) | payer MEDICARE, SELFPAY ==
[2021-01-19 13:26] VITALS: BP 132/67; PULSE 78; RESP 14; TEMP 36.8; O2SAT 100
--- NOTE | 2021-01-19 13:28 | ED.EAR ---
HPI - Ear Problem General Chief complaint: Ear Stated complaint: Possible right Ear infection Time Seen by Provider: 01/19/21 13:29 Source: patient and RN notes reviewed History of Present Illness HPI Narrative: Patient is 65-year-old female who presents the urgent care with her with complaints of possible right ear infection. Patient states that she feels that there is water in the ear and she has had some decreased hearing loss . Patient states that started Friday night after taking a shower. Denies of any other upper respiratory complaints. No acute distress noted. Patient aware of the plan of care. Some parts of this dictation were generated by voice recognition software and may contain typographical and/or grammatical inaccuracies. Related Data Home Medications Medication Instructions Recorded Confirmed cholecalciferol (vitamin D3) 50 50 mcg PO DAILY 07/02/19 12/22/20 mcg (2,000 unit) capsule magnesium oxide 400 mg PO DAILY 06/30/20 12/22/20 amlodipine 5 mg PO HS 09/08/20 12/22/20 levothyroxine 75 mcg PO DAILY 09/08/20 12/22/20 lovastatin 10 mg PO HS 09/08/20 12/22/20 Lactobacillus acidophilus 1.5 mg 500 mmu cells PO DAILY 09/15/20 12/22/20 (250 million cell) capsule Allergies Allergy/AdvReac Type Severity Reaction Status Date / Time No Known Allergies Allergy Verified 01/19/21 13:37 Review of Systems Review of Systems: CONSTITUTIONAL: Denies fever, chills, or sweats. EYES: Denies visual changes, redness, or discharge. ENT: Denies rhinorrhea, congestion, sore throat. Reports of decreased hearing of the right ear CARDIOVASCULAR: Denies chest pain, palpitations, or edema. RESPIRATORY: Denies cough or dyspnea. GASTROINTESTINAL: Denies abdominal pain, nausea, vomiting, or diarrhea. GENITOURINARY: Denies dysuria or hematuria. SKIN: Denies rash or itching. MUSCULOSKELETAL: Denies back pain, joint pain, or myalgia. NEUROLOGIC: Denies headache, numbness, or weakness. All other systems reviewed are negative, except as documented in HPI. [facility] Past Medical History Medical History (Updated 01/19/21 @ 13:46 by VERONICA Foster) Cancer of left breast Combined hyperlipidemia Dislocation of right shoulder joint Essential (primary) hypertension History of breast cancer History of diverticulitis (~07/2017) Perforated diverticulitis. Hypothyroidism, unspecified Overactive bladder Vitamin D deficiency Surgical History Surgical History History of arthroscopy of right shoulder Patient reports large rotator cuff tear which was unable to be repaired. She also had bone spurs removed. History of bladder suspension procedure (~07/2020) Sacral colpopexy and transobturator sling for urinary incontinence. History of laparoscopy (~07/2017) With peritoneal irrigation and drain placement for perforated diverticulitis. History of left mastectomy History of tubal ligation Family History Family History Mother Hypertension Father Family history of celiac disease Other Family history of neuropathy Social History Social History Social History: Surrogate decision maker: Gary Woodson, . Code status: Full code. Smoking status: Never smoker Alcohol intake: never Substance use: never Additional living arrangements comments: Resides in [place] with her . 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 Gender identity (if verbalized by the patient): Female Spiritual care concerns: No Comments At the time of my signature, I reviewed and agree with the nursing past medical, surgical, social, and family history. There is no relevant family history pertinent to the patient complaint. Exam Narrative: GENERAL: This is a well-nourished, well-developed patient, in no appare
== END 2021-01-19 13:52 | disposition home or self-care (01) ==
PROVIDERS: Emergency Provider Nurse Practitioner Family; PCP Family Medicine
DX: H61.21 Impacted cerumen, right ear (principal); I10 Essential (primary) hypertension; Z85.3 Personal history of malignant neoplasm of breast; E03.9 Hypothyroidism, unspecified; E55.9 Vitamin D deficiency, unspecified; E78.2 Mixed hyperlipidemia; Z90.12 Acquired absence of left breast and nipple
CPT/HCPCS: 69209; 99212; G0463

== ENCOUNTER 2021-06-12 00:03 | Day surgery (SDC) | payer MEDICARE, SELFPAY ==
[2021-06-05 11:06] VITALS: BMI 26.6
--- NOTE | 2021-06-05 11:28 | PC.NURSE ---
Report to the Outpatient Waiting Room, entrance under the green pavilion located off [facility], at time __9:30AM on date __06/12/21 . OR Time: __11:30AM . - You and your visitor will be asked a series of questions to screen for COVID 19 for your protection. - A mask is required within the hospital. - Only one visitor is allowed at this time. Patient visitors will be guided where to wait when not with patient. Preoperative COVID Testing Requirements: No COVID Test needed if: (proof is required; if not received patient will have Rapid Test prior to entry) - Patient has received COVID Vaccine at least 14 days prior to procedure date or - Patient has positive COVID test result within last 90 days of surgery date. COVID Test needed if above criteria is not met If not COVID vaccinated a COVID test must be conducted within 72 hours of surgery and patient is asked to isolate self from time of testing until procedure. You will go to the [facility] for your COVID testing. The [facility] site is located at the corner of [address] from [facility]. You will only be called if COVID results are positive and your surgeon may reschedule your elective surgery date. Patients may have clear liquids (water, carbonated beverages, clear teas, apple juice) until 3 hours prior to surgery with a maximum of 20 ounces. - No food from midnight until time of surgery - Infants may have breast milk until 4 hours before surgery, infant formula 6 hours prior to surgery. - Children will be allowed to drink immediately following surgery. If applicable, please bring a bottle or sippy cup to assist with drinking. Juice, water, soda, and popsicles are readily available. For infants on formula, please bring formula the day of surgery. Pacifiers are allowed. Take the following medications with a SIP of water the morning of surgery: ___LEVOTHYROXINE Medications to discontinue per physician ALL VITAMINS/SUPPLEMENTS 3 DAYS PRE-OP Date to take last dose 06/08/21 Please no make-up, nail mohawk, hairspray, perfume, deodorant, or body powder the day of surgery. No jewelry (including any body piercings) or valuables the day of surgery, leave them at home. Please take a shower or bath the night before, or the morning of, surgery with an antibacterial soap. Wear comfortable, loose fitting clothing. Children are encouraged to wear pajamas. - Jewelry must be removed prior to entering the operating room. Rings and piercings that are not removed may be cut off. - The hospital will not accept responsibility for valuables. - Please leave all valuables, including medications, at home the day of surgery. If you are going home after surgery, a licensed regional truck driver must drive you home. - NO public transportation without another adult. - We recommend that an adult stay with you for 24 hours following discharge. - We also recommend that you do not drive, make important decision, drink alcoholic beverages, or take any drugs that were not prescribed by your health care provider for at least 24 hours after your discharge time. For Pediatric surgeries, we recommend two adults accompany the child home (only one inside the building at this time). Follow any additional instructions given to you from your surgeon. Telephone instructions given to ____PATIENT and asked if any additional questions and then verbalized understanding. Patient advised to call surgeon office or pre surgery nurse liaison [phone] if any additional questions.
[2021-06-12] VITALS (12 sets, daily range): BP systolic 105–128; BP diastolic 56–64; PULSE 75–98; RESP 12–20; TEMP 36.2–36.5; O2SAT 92–100
[2021-06-12] MEDS: LACTATED RINGERS 1,000 ML 30 ML IV CONT ×2 (10:02→13:09)
--- NOTE | 2021-06-12 11:00 | WPDHPUPDATE1 ---
History and Physical Update Update Date/Time: 06/12/21 11:00 History and Physical has been reviewed, including an updated exam of the patient. There are NO changes in the patient's condition. Risks, benefits, and alternatives have been discussed and questions answered. Patient agrees to proceed with procedure.
[2021-06-12] MEDS: TRANEXAMIC ACID 1,000MG/ISO100 1,000 MG/100 ML BAG 200 MG IVPB (11:10)
--- NOTE | 2021-06-12 11:12 | WPDANESEPPF ---
Anes - Initial Pre Proc Eval Procedure: Operation Date: 06/12/21 11:30 Proposed Procedures p Left Breast Implant Exchange - Migue Vazquez MD Date/Time: 06/12/21 11:12 Surgeon: Migue Vazquez MD Pre Op Diagnosis: left breast implant rupture Patient Data Age: 66 Gender: F Height: 1.55 m Weight: 61.1 kg Last Vital Signs Temp 36.5 C 06/12/21 09:46 Pulse 75 06/12/21 09:46 Resp 18 06/12/21 09:46 BP 128/60 06/12/21 09:46 Pulse Ox 100 06/12/21 09:46 Allergies Allergy/AdvReac Type Severity Reaction Status Date / Time No Known Allergies Allergy Verified 06/12/21 09:42 Home Medications Medication Instructions Recorded Confirmed Type cholecalciferol (vitamin D3) 50 50 mcg PO DAILY 07/02/19 06/12/21 History mcg (2,000 unit) capsule magnesium oxide 400 mg PO DAILY 06/30/20 06/12/21 History Lactobacillus acidophilus 1.5 mg 500 mmu cells PO DAILY 09/15/20 06/12/21 History (250 million cell) capsule amlodipine 5 mg tablet 5 mg PO HS #90 tablet 05/18/21 06/12/21 Rx lovastatin 10 mg tablet 10 mg PO HS #90 tablet 05/25/21 06/12/21 Rx metoprolol tartrate 100 mg tablet 100 mg PO HS #90 tablet 05/25/21 06/12/21 Rx hydrocodone 5 mg-acetaminophen 325 1 tablet PO Q6H PRN #30 tablet 05/28/21 06/12/21 Rx mg tablet ondansetron HCl 4 mg tablet 4 mg PO Q6H #30 tablet 05/28/21 06/12/21 Rx docusate sodium [Colace] 100 mg PO BID PRN 06/05/21 06/12/21 History glucosamine sulfate [Glucosamine] 500 mg PO BID 06/05/21 06/12/21 History levothyroxine 75 mcg PO QAM 06/05/21 06/12/21 History lisinopril 20 mg PO QAM 06/05/21 06/12/21 History Patient hx anesthesia problems: none Family hx anesthesia problems: none Results Review: All pre-operative results and documents have been reviewed as part of the pre-operative evaluation. PMFSH Past Medical History Medical History Cancer of left breast Combined hyperlipidemia Dislocation of right shoulder joint Essential (primary) hypertension History of breast cancer History of diverticulitis (~07/2017) Perforated diverticulitis. Hypothyroidism, unspecified Overactive bladder Vitamin D deficiency Surgical History Surgical History History of arthroscopy of right shoulder Patient reports large rotator cuff tear which was unable to be repaired. She also had bone spurs removed. History of bladder suspension procedure (~07/2020) Sacral colpopexy and transobturator sling for urinary incontinence. History of laparoscopy (~07/2017) With peritoneal irrigation and drain placement for perforated diverticulitis. History of left mastectomy History of tubal ligation Family History Family History Mother Hypertension Father Family history of celiac disease Other Family history of neuropathy Social History Social History Social History: Surrogate decision maker: Gary Woodson, . Code status: Full code. 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 Gender identity (if verbalized by the patient): Female Spiritual care concerns: No Anes - Eval Final PreProcedure Day of Procedure 06/12/21 11:12 Patient weight: overweight Heart: regular rate and rhythm Lungs: clear to auscultation Airway: Mallampati scale class II and other (upper plate) Neurological: alert and oriented Last oral intake: >/= 8 hours ASA classification: III Emergent: no Anesthetic plan: proceed Anesthesia type and monitoring: general LMA and standard monitoring Results Review: All pre-operative results and documents have been reviewed as part of the pre
[2021-06-12] MEDS: ceFAZolin 2 GM/D5W 50 ML 2 GM/50 ML BAG IVPB (11:23)
[2021-06-12] MEDS: LIDO 1%/EPINEPHRINE 1:100,000 50 ML VIAL INFILTRATE (12:41)
[2021-06-12] MEDS: BUPIVACAINE HCL 0.25% PF 30 ML VIAL 60 ML INFILTRATE (12:45)
--- NOTE | 2021-06-12 13:07 | P.OP_ITS ---
Procedure Note - Detailed Date of Procedure 06/12/21 Pre-op Diagnosis left breast implant rupture Post-op Diagnosis same Procedure Performed 1. Removal left breast implant material 2. Left breast capsulectomy 3. Placement left breast implant Surgeon Migue Vazquez MD Anesthesia general Findings Previous implant was the size we anticipated. There was a 2nd implant in the pocket however much smaller approximately 100-150cc. I was unable to identify the exact size. Replacement implant: Brown Bianchi SoftTouch 650cc REF# [id number] Description of Procedure Preoperatively the risks, benefits, alternatives were discussed in extensive detail. I want her to be very realistic about the risks involved as well as expectations. Made sure answered all of her questions to her satisfaction. Consent was obtained. She was marked in the preoperative holding area with her verification. She was taken to the operating room placed supine on the operating room table. Anesthesia was provided by anesthesiology and prepped and draped in a standard sterile fashion. Surgical time-out was taken. 1% lidocaine and 0.25% Marcaine with epinephrine was used anesthetize locally. A 15 blade used to excise a portion the lateral scar. Dissection was continued down until the capsule is identified and elevated just above the fibrous firm capsule until nearly completely dissected. I then incised and there was immediate dark liquid. This was unexpected and I removed and sent to pathology. Also took cultures. Implant was removed which was ruptured. There was actually a 2nd smaller implant which was also silicone with no identifiable markings. It did appear to be discrete implant. The main implant did match our preoperative plan and was ruptured. I sent the capsule also to pathology. I copiously irrigated with almost 6 L of saline solution verified and strict hemostasis. In the middle of this I did use hematuria and in order to maintain that there was good hemostasis. Multiple times I changed gloves and instrumentation. I then irrigated with a triple antibiotic Betadine solution. Allowed this to sit for a period of time and then introduced the implant into the pocket using a Serrano funnel. I closed using 2-0 Vicryl followed 3-0 Stratafix in a running subcuticular 4-0 Monocryl and tissue glue. Dressings and a surgical bra were placed. Patient was woken taken to the PACU without difficulty. All instrument sponge c ounts were correct at the end of the case. Estimated Blood Loss 150 Drains No Packing No Pathology yes (Pericapsule fluid, capsule.) Complications No immediate complications Condition stable Disposition PACU
[2021-06-12] MEDS: fentaNYL CITRATE INJ (*CRX) 100 MCG/2 ML VIAL 25 MCG IV PUSH ×4 (13:55→14:28)
--- NOTE | 2021-06-12 15:03 | SUR.PHASEII ---
PT AWAKE AND ALERT. STATES MILD SORENESS TO LT BREAST. TAKING PO FLUIDS.
[2021-06-12] MEDS: oxyCODONE HCL (*CRX) 5 MG TAB IR PO (15:21)
--- NOTE | 2021-06-12 15:34 | SUR.PHASEII ---
PT AWAKE AND ALERT. STATES PAIN MILD AND TOLERABLE. ASKED FOR PAIN PILL. STATES SHE IS READY TO GO HOME.
== END 2021-06-12 15:54 | disposition home or self-care (01) ==
PROVIDERS: PCP Family Medicine; Visit Provider Surgery Plastic and Reconstructive Surgery
PROC: (CPT 19342; principal; 2021-06-12 11:30)
DX: T85.41XA Breakdown (mechanical) of breast prosthesis and implant, initial encounter (principal); Y83.8 Other surgical procedures as the cause of abnormal reaction of the patient, or of later complication, without mention of misadventure at the time of the procedure; Z85.3 Personal history of malignant neoplasm of breast; E78.2 Mixed hyperlipidemia; I10 Essential (primary) hypertension; E03.9 Hypothyroidism, unspecified; E55.9 Vitamin D deficiency, unspecified
CPT/HCPCS: 19342; 19330; 87070; 87075; 87205; 88104; 88108; 88184; 88304; 88305; A9270; J0690; J1100; J1580; J2250; J2405; J2704; J3010; J7030; J7120

== ENCOUNTER → 2021-10-04 10:56 | Outpatient (CLI) | payer MEDICARE, SELFPAY ==
--- NOTE | ~2021-10-04 | XR_ITS ---
XR foot RT 2V DATE: 10/04/2021 11:08 INDICATION: Pain and swelling of right foot. No injury. TECHNIQUE: AP and lateral views COMPARISON: None FINDINGS: Prominent posterior calcaneal enthesopathy. No fracture, dislocation, periosteal reaction or bone destruction. No erosive change. IMPRESSION: Posterior calcaneal enthesopathy Reviewed, dictated and finalized at location A.
== END ==
PROVIDERS: PCP Nurse Practitioner Family; Visit Provider Nurse Practitioner Family
DX: M77.31 Calcaneal spur, right foot (principal)
CPT/HCPCS: 73620

== ENCOUNTER 2021-12-28 10:19 | Outpatient (CLI) | payer MEDICARE, SELFPAY ==
[2021-12-28 18:44] LABS: Basophils Percent Auto 0.6 % (0.2-1.2); Eosinophils Absolute Auto 0.2 K/mm3 (0-0.3); Eosinophils Percent Auto 3.2 % (0-4.4); Hematocrit 36.4 % (37.0-47.0); Hemoglobin 11.8 g/dL (12.0-15.0); Immature Granulocyte Absolute 0.02 K/mm3 (0.00-0.031); Immature Granulocyte Percent A 0.4 % (0-0.5); Lymphocytes Absolute Auto 0.72 K/mm3 (0.9-3.2); Lymphocytes Percent Auto 14.3 % (18.3-44.2); Mean Corpuscular HGB Conc 32.4 g/dl (32-36); Mean Corpuscular Hemoglobin 31.3 pg (26-34); Mean Corpuscular Volume 96.6 fl (80-100); Mean Platelet Volume 10.4 fl (7.4-10.4); Monocytes Absolute Auto 0.5 K/mm3 (0.1-0.6); Monocytes Percent Auto 9.6 % (2.6-8.5); Neutrophils Absolute Auto 3.6 K/mm3 (1.3-6.7); Neutrophils Percent Auto 71.9 % (45.5-73.1); Platelet Count Result 226 k/mm3 (150-375); Red Blood Count 3.77 M/mm3 (4.2-5.4); Red Cell Distribution Width 12.8 % (11.5-14.5)
[2021-12-28 18:52] LABS: Alanine Aminotransferase 26 U/L (6-35); Albumin Level 4.2 g/dL (3.5-5.1); Alkaline Phosphatase 77 U/L (38-126); Anion Gap 8 mmol/L (8-16); Aspartate Amino Transferase 45 U/L (14-36); Bilirubin,Total 0.7 mg/dL (0.2-1.3); Blood Urea Nitrogen 20 mg/dL (7-17); Calcium 9.4 mg/dL (8.4-10.2); Carbon Dioxide 29 mmol/L (22-30); Chloride 103 mmol/L (98-107); Cholesterol 173 mg/dL (0-200); Estimated Glomerular Filt Rate > 60; Glucose 92 mg/dL (65-110); HDL Direct 48 mg/dL; Potassium 4.3 mmol/L (3.4-5.0); Sodium 140 mmol/L (137-145); Triglycerides 103 mg/dL (<150)
[2021-12-28 18:55] LABS: LDL Cholesterol Direct 89 mg/dL; NT Pro B Type Natriuretic Pept 295 pg/mL (5-100)
== END 2021-12-28 10:20 | disposition home or self-care (01) ==
PROVIDERS: PCP Nurse Practitioner; Visit Provider Nurse Practitioner
DX: I10 Essential (primary) hypertension (principal); E78.5 Hyperlipidemia, unspecified; E03.9 Hypothyroidism, unspecified; M79.89 Other specified soft tissue disorders
CPT/HCPCS: 36415; 80053; 80061; 83880; 84443; 85025

== ENCOUNTER 2022-01-05 09:22 | Outpatient (CLI) | payer MEDICARE, SELFPAY ==
--- NOTE | 2022-01-05 09:52 | ECHO_ITS ---
Patient Info Name: Ludy Woodson Age: 66 years : 1955 Gender: Female Ht: 61 in Wt: 145 lbs BSA: 1.70 m2 HR: 73 bpm BP: 143 / 74 mmHg Technical Quality: Fair Exam Date: 01/05/2022 10:09 AM Exam Location: [facility] Patient Status: Outpatient Admit Date: 01/05/2022 Staff Ordering Physician: Mar Floyd NP Rn Pediatric Icu: Pari Barth RDCS Attending Provider: Mar Floyd NP Referring Physician: Everett HARMON; Exam Type: CA echo doppler color flow Study Info Indications - VLADISLAV Complete two-dimensional, color flow and Doppler transthoracic echocardiogram is performed. Summary 1. Complete two-dimensional, color flow and Doppler transthoracic echocardiogram is performed. 2. Left ventricular chamber dimension is normal. 3. Left ventricular systolic function is normal, estimated at 60-65%. 4. The left ventricular diastolic function is grade II diastolic dysfunction. 5. E/e' 19 is elevated. 6. Left atrial chamber dimension is mildly enlarged. 7. There is mild tricuspid valve regurgitation. 8. No pulmonary hypertension, estimated pulmonary arterial systolic pressure is 27 mmHg. Left Ventricle E/e' 19 is elevated. Left ventricular chamber dimension is normal. Left ventricular systolic function is normal, estimated at 60-65%. The left ventricular diastolic function is grade II diastolic dysfunction. Right Ventricle Right ventricular chamber dimension is normal. Right ventricular systolic function is normal. Left Atria Left atrial chamber dimension is mildly enlarged. Right Atria Right atrial chamber dimension is normal. Aortic Valve The aortic valve is trileaflet. There is no aortic valve stenosis. There is no aortic valve regurgitation. Pulmonic Valve There is no pulmonic regurgitation. Mitral Valve There is no mitral valve stenosis. There is no mitral valve regurgitation. Tricuspid Valve There is mild tricuspid valve regurgitation. No pulmonary hypertension, estimated pulmonary arterial systolic pressure is 27 mmHg. Pericardium/Pleural There is no pericardial effusion. Inferior Vena Cava Normal inferior vena cava with >50% collapse upon inspiration consistent with normal right atrial pressure, 5 mmHg. Aorta The aortic root size at the sinus of Valsalva is normal. Left Ventricular Outflow Tract Name Value Normal LVOT 2D LVOT Diameter 2.0 cm LVOT Doppler LVOT Peak Gradient 3 mmHg LVOT Mean Gradient 2 mmHg LVOT VTI 19 cm LVOT VTI/AV VTI Ratio 0.7 LVOT Stroke Volume 62 ml LVOT CO 12.1 l/min LVOT CI 7.1 l/min/m2 Pulmonic Valve Name Value Normal PV Doppler PV Peak Gradient
== END 2022-01-05 09:23 | disposition home or self-care (01) ==
PROVIDERS: PCP Nurse Practitioner; Visit Provider Nurse Practitioner
DX: M79.89 Other specified soft tissue disorders (principal); R79.89 Other specified abnormal findings of blood chemistry; I36.1 Nonrheumatic tricuspid (valve) insufficiency
CPT/HCPCS: 93306

== ENCOUNTER → 2022-03-08 12:29 | Outpatient (CLI) | payer MEDICARE, SELFPAY ==
--- NOTE | ~2022-03-08 | MM_ITS ---
EXAMINATION: MM screening deborah RT w smooth HISTORY: Screening right mammogram, history of left mastectomy TECHNIQUE: Craniocaudal and mediolateral oblique 3-D tomosynthesis images were obtained and synthetic 2-D images were generated. CAD analysis was submitted and interpreted. COMPARISON: 12/01/2020, 07/02/2019, 06/26/2018 BREAST PARENCHYMAL COMPOSITION: There are scattered areas of fibroglandular density. FINDINGS: No suspicious mass, calcification, or architectural distortion are identified in either gorge ast to suggest malignancy. There has been no suspicious interval change. IMPRESSION: 1. No mammographic evidence of malignancy. 2. Recommend routine screening mammography in one year. BI-RADS Category 1: Negative Reviewed, dictated and finalized at location A.
== END ==
PROVIDERS: PCP Nurse Practitioner; Visit Provider Nurse Practitioner
DX: Z12.31 Encounter for screening mammogram for malignant neoplasm of breast (principal)
CPT/HCPCS: 77063; 77067

== ENCOUNTER 2022-07-01 18:39 | Emergency (ER) | payer MEDICARE, SELFPAY ==
[2022-07-01 18:57] VITALS: BP 120/72; PULSE 78; TEMP 36.6; O2SAT 98
--- NOTE | 2022-07-01 19:10 | ED.ABDPAIN ---
HPI - Abdominal Pain General Chief Complaint: Urogenital-Female Stated Complaint: Urinary Problem Source: patient and RN notes reviewed History of Present Illness HPI narrative: 67-year-old male presents urgent with complaints of dysuria, burning with urination, urinary frequency and urgency x3 days. Patient denies any abdominal pain, back pain, fevers, chills, or vomiting. Patient took azo with minimal relief. Some parts of this dictation were generated by voice recognition software and may contain typographical and/or grammatical inaccuracies. Related Data Home Medications Medication Instructions Recorded Confirmed cholecalciferol (vitamin D3) 50 50 mcg PO DAILY 07/02/19 12/28/21 mcg (2,000 unit) capsule magnesium oxide 400 mg PO DAILY 06/30/20 12/28/21 Lactobacillus acidophilus 1.5 mg 500 mmu cells PO DAILY 09/15/20 12/28/21 (250 million cell) capsule (Probiotic Acidophilus) glucosamine sulfate 500 mg tablet 500 mg PO BID 06/05/21 12/28/21 (Glucosamine) Allergies Allergy/AdvReac Type Severity Reaction Status Date / Time No Known Allergies Allergy Verified 12/28/21 09:26 Review of Systems Review of Systems: CONSTITUTIONAL: Denies fever, chills, or sweats. EYES: Denies visual changes, redness, or discharge. ENT: Denies otalgia and sore throat CARDIOVASCULAR: Denies chest pain, palpitations, or edema. RESPIRATORY: Denies cough or dyspnea. GASTROINTESTINAL: Denies abdominal pain, nausea, vomiting, or diarrhea. GENITOURINARY: Reports dysuria SKIN: Denies rash or itching. MUSCULOSKELETAL: Denies back pain, joint pain, or myalgia. NEUROLOGIC: Denies headache, numbness, or weakness. FORMERLY [facility] Past Medical History Medical History Breast implant removal status Combined hyperlipidemia Dislocation of right shoulder joint Essential (primary) hypertension History of breast cancer History of diverticulitis (~07/2017) Perforated diverticulitis. Hypothyroidism, unspecified Overactive bladder Vitamin D deficiency Surgical History Surgical History History of arthroscopy of right shoulder Patient reports large rotator cuff tear which was unable to be repaired. She also had bone spurs removed. History of bladder suspension procedure (~07/2020) Sacral colpopexy and transobturator sling for urinary incontinence. History of laparoscopy (~07/2017) With peritoneal irrigation and drain placement for perforated diverticulitis. History of left mastectomy History of tubal ligation Family History Family History Mother Hypertension Father Family history of celiac disease Other Family history of neuropathy Social History Social History Social History: Surrogate decision maker: Gary Woodson, . Code status: Full code. 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 Gender identity (if verbalized by the patient): Female Sexual Orientation (if Verbalized by the Patient): Straight or Heterosexual Spiritual care concerns: No Agree to blood products: Yes Comments At the time of my signature, I reviewed and agree with the nursing past medical, surgical, social, and family history. There is no relevant family history pertinent to the patient complaint. Exam Narrative: GENERAL: This is a well-nourished, well-developed patient, in no apparent distress. HEAD: normocephalic, atraumatic. EYES: PERRL. Sclera clear/white. Vision is grossly intact. EARS: External ears normal, auditory canals clear and without drainage, TMs nor
== END 2022-07-01 19:19 | disposition home or self-care (01) ==
PROVIDERS: Emergency Provider Nurse Practitioner Family; PCP Family Medicine
DX: N39.0 Urinary tract infection, site not specified (principal); I10 Essential (primary) hypertension; E03.9 Hypothyroidism, unspecified; Z85.3 Personal history of malignant neoplasm of breast
CPT/HCPCS: 81003; 99213; G0463

== ENCOUNTER 2022-08-09 10:46 | Outpatient (CLI) | payer MEDICARE, SELFPAY ==
[2022-08-09 18:40] LABS: Basophils Percent Auto 0.6 % (0.2-1.2); Eosinophils Absolute Auto 0.2 K/mm3 (0-0.3); Eosinophils Percent Auto 2.7 % (0-4.4); Hematocrit 35.4 % (37.0-47.0); Hemoglobin 11.2 g/dL (12.0-15.0); Immature Granulocyte Absolute 0.02 K/mm3 (0.00-0.031); Immature Granulocyte Percent A 0.3 % (0-0.5); Lymphocytes Absolute Auto 0.95 K/mm3 (0.9-3.2); Lymphocytes Percent Auto 13.6 % (18.3-44.2); Mean Corpuscular HGB Conc 31.6 g/dl (32-36); Mean Corpuscular Hemoglobin 30.4 pg (26-34); Mean Corpuscular Volume 96.2 fl (80-100); Mean Platelet Volume 10.2 fl (7.4-10.4); Monocytes Absolute Auto 0.6 K/mm3 (0.1-0.6); Monocytes Percent Auto 8.8 % (2.6-8.5); Neutrophils Absolute Auto 5.2 K/mm3 (1.3-6.7); Platelet Count Result 278 k/mm3 (150-375); Red Blood Count 3.68 M/mm3 (4.2-5.4); Red Cell Distribution Width 12.7 % (11.5-14.5)
[2022-08-09 19:04] LABS: Alanine Aminotransferase 23 U/L (6-35); Alkaline Phosphatase 79 U/L (38-126); Anion Gap 7 mmol/L (8-16); Aspartate Amino Transferase 27 U/L (14-36); Bilirubin,Total 0.5 mg/dL (0.2-1.3); Blood Urea Nitrogen 17 mg/dL (7-17); Calcium 9.1 mg/dL (8.4-10.2); Carbon Dioxide 27 mmol/L (22-30); Chloride 106 mmol/L (98-107); Cholesterol 159 mg/dL (0-200); Estimated Glomerular Filt Rate > 60; Glucose 87 mg/dL (65-110); HDL Direct 35 mg/dL; Potassium 4.1 mmol/L (3.4-5.0); Sodium 140 mmol/L (137-145); Triglycerides 129 mg/dL (<150)
[2022-08-09 19:53] LABS: LDL Cholesterol Direct 94 mg/dL
== END 2022-08-09 10:47 | disposition home or self-care (01) ==
LOC: ANHGOSHLAB 10:47
PROVIDERS: PCP Family Medicine; Visit Provider Nurse Practitioner
DX: E78.5 Hyperlipidemia, unspecified (principal); E03.9 Hypothyroidism, unspecified; I10 Essential (primary) hypertension
CPT/HCPCS: 36415; 80053; 80061; 84443; 85025

== ENCOUNTER 2023-01-31 18:02 | Emergency (ER) | payer MEDICARE, SELFPAY ==
--- NOTE | ~2023-01-31 | XR_ITS ---
XR knee LT 3V DATE: 01/31/2023 18:27 INDICATION: Fall forward onto knee. Anterior knee pain. TECHNIQUE: 5 views including crosstable lateral and sunrise COMPARISON: None FINDINGS: There is a likely subtle minimally displaced fracture of the inferior aspect of the patella . Differential diagnosis includes less likely bipartite patella. Recommend clinical correlation for p oint tenderness at the lower pole of the patella. If further imaging evaluation is required, consider CT left knee. Osteopenia. No other fracture or dislocation. No periosteal reaction or bone destruction. Joint spaces are well p reserved. No radiopaque intra-articular loose body or chondrocalcinosis. IMPRESSION: Suspected minimally displaced fracture of the inferior aspect of the patella; differentia l diagnosis includes bipartite patella. Clinical correlation is advised Reviewed, dictated and finalized at location A. IMPRESSION: Suspected minimally displaced fracture of the inferior aspect of th e patella; differential diagnosis includes bipartite patella. Clinical correlat ion is advised
[2023-01-31 18:11] VITALS: BP 139/69; PULSE 91; RESP 16; TEMP 36.4; O2SAT 99
--- NOTE | 2023-01-31 18:20 | ED.LOWEXIN ---
HPI - Extremity Injury (Lower) General Chief Complaint: Extremity Injury, Lower Stated Complaint: Left Knee Injury Time Seen by Provider: 01/31/23 18:35 Source: patient, RN notes reviewed and old records reviewed Mode of arrival: ambulatory Limitations: no limitations History of Present Illness HPI Narrative: 67-year-old female presents to the [facility] complaints of left knee pain. States that she fell forward landing on her knee last night. Denies any head. No loss of consciousness. Pain with walking especially walking upstairs she is with her left leg. Mild swelling and bruising noted to the left knee, proximal tib-fib Related Data Home Medications Medication Instructions Recorded Confirmed cholecalciferol (vitamin D3) 50 50 mcg PO DAILY 07/02/19 01/31/23 mcg (2,000 unit) capsule magnesium oxide 400 mg PO DAILY 06/30/20 01/31/23 Lactobacillus acidophilus 1.5 mg 500 mmu cells PO DAILY 09/15/20 01/31/23 (250 million cell) capsule (Probiotic Acidophilus) glucosamine sulfate 500 mg tablet 500 mg PO BID 06/05/21 01/31/23 (Glucosamine) Allergies Allergy/AdvReac Type Severity Reaction Status Date / Time No Known Allergies Allergy Verified 08/09/22 09:47 Review of Systems Review of Systems: All systems reviewed & are unremarkable except as noted in HPI and below Constitutional: Constitutional: Reports no additional constitutional complaints Eyes: Eyes: Reports no additional eye complaints ENT: Reports system reviewed and no additional complaints, except as documented Cardiovascular: Cardiovascular: Reports no additional cardiovascular complaints, Denies chest pain and Denies dyspnea Respiratory: Respiratory: Reports no additional respiratory complaints, Denies chest congestion, Denies cough and Denies dyspnea Gastrointestinal: Gastrointestinal: Reports no additional gastrointestinal complaints, Denies abdominal pain, Denies nausea and Denies vomiting Musculoskeletal: Musculoskeletal: Reports as per HPI Integumentary/Breasts: Skin/Breast: Reports system reviewed and no additional complaints, except as docu Neurologic: Reports system reviewed and no additional complaints, except as documented Psychiatric: Psychiatric: Reports no additional psychiatric complaints Allergic/Immunologic: Allergic/Immunologic: Reports no additional allergic/immunologic complaints PMFSH Past Medical History Medical History Breast implant removal status Combined hyperlipidemia Dislocation of right shoulder joint Essential (primary) hypertension History of breast cancer History of diverticulitis (~07/2017) Perforated diverticulitis. Hypothyroidism, unspecified Overactive bladder Vitamin D deficiency Surgical History Surgical History History of arthroscopy of right shoulder Patient reports large rotator cuff tear which was unable to be repaired. She also had bone spurs removed. History of bladder suspension procedure (~07/2020) Sacral colpopexy and transobturator sling for urinary incontinence. History of laparoscopy (~07/2017) With peritoneal irrigation and drain placement for perforated diverticulitis. History of left mastectomy History of tubal ligation Family History Family History Mother Hypertension Father Family history of celiac disease Other Family history of neuropathy Social History Social History Social History: Surrogate decision maker: Gary Woodson, . Code status: Full code. Smoking status: Never smoker Alcohol intake: never Substance use: never Substance use type: does not use Lack of Transportation: No Lack of Food: Never True Current Housing: I Have Housing Concerned About Future Housing: No Difficulty Paying Gas/Electric Bills: No Difficu
== END 2023-01-31 19:06 | disposition home or self-care (01) ==
PROVIDERS: Emergency Provider Nurse Practitioner; PCP Family Medicine
DX: S82.002A Unspecified fracture of left patella, initial encounter for closed fracture (principal); W19.XXXA Unspecified fall, initial encounter; E78.2 Mixed hyperlipidemia; I10 Essential (primary) hypertension; E03.9 Hypothyroidism, unspecified; E55.9 Vitamin D deficiency, unspecified; N32.81 Overactive bladder; Z85.3 Personal history of malignant neoplasm of breast; Z90.12 Acquired absence of left breast and nipple
CPT/HCPCS: 73562; 99214; G0463; L1830

== ENCOUNTER 2023-02-07 10:04 | Outpatient (CLI) | payer MEDICARE, SELFPAY ==
[2023-02-07 16:36] LABS: Basophils Absolute Auto 0.1 K/mm3 (0.0-0.1); Eosinophils Absolute Auto 0.1 K/mm3 (0-0.3); Eosinophils Percent Auto 2.3 % (0-4.4); Hematocrit 35.7 % (37.0-47.0); Hemoglobin 11.5 g/dL (12.0-15.0); Immature Granulocyte Absolute 0.01 K/mm3 (0.00-0.031); Immature Granulocyte Percent A 0.2 % (0-0.5); Lymphocytes Absolute Auto 0.96 K/mm3 (0.9-3.2); Lymphocytes Percent Auto 18.3 % (18.3-44.2); Mean Corpuscular HGB Conc 32.2 g/dl (32-36); Mean Corpuscular Hemoglobin 31.9 pg (26-34); Mean Corpuscular Volume 98.9 fl (80-100); Monocytes Absolute Auto 0.5 K/mm3 (0.1-0.6); Monocytes Percent Auto 10.1 % (2.6-8.5); Neutrophils Absolute Auto 3.6 K/mm3 (1.3-6.7); Neutrophils Percent Auto 68.1 % (45.5-73.1); Platelet Count Result 242 k/mm3 (150-375); Red Blood Count 3.61 M/mm3 (4.2-5.4); Red Cell Distribution Width 12.8 % (11.5-14.5); White Blood Count 5.3 K/mm3 (4.5-10.0)
[2023-02-07 18:38] LABS: Alanine Aminotransferase 28 U/L (6-35); Albumin Level 4.2 g/dL (3.5-5.1); Alkaline Phosphatase 56 U/L (38-126); Anion Gap 3 mmol/L (8-16); Aspartate Amino Transferase 44 U/L (14-36); Bilirubin,Total 0.5 mg/dL (0.2-1.3); Blood Urea Nitrogen 24 mg/dL (7-17); Calcium 9.1 mg/dL (8.4-10.2); Carbon Dioxide 28 mmol/L (22-30); Chloride 106 mmol/L (98-107); Estimated Glomerular Filt Rate > 60; Glucose 94 mg/dL (65-110); Potassium 4.5 mmol/L (3.4-5.0); Sodium 137 mmol/L (137-145)
[2023-02-07 19:36] LABS: Folic Acid 15.3 ng/mL (2.76->20)
[2023-02-07 19:45] LABS: Iron 101 ug/dL (37-170)
[2023-02-07 19:54] LABS: Percent Iron Saturation 33 % (20-50)
[2023-02-07 19:57] LABS: Vitamin D 25 Hydroxy 65.8 ng/mL
== END 2023-02-07 10:05 | disposition home or self-care (01) ==
PROVIDERS: PCP Family Medicine; Visit Provider Family Medicine
DX: D64.9 Anemia, unspecified (principal); E03.9 Hypothyroidism, unspecified; E78.2 Mixed hyperlipidemia; I10 Essential (primary) hypertension; E55.9 Vitamin D deficiency, unspecified
CPT/HCPCS: 36415; 80053; 82306; 82607; 82728; 82746; 83540; 83550; 84443; 85025

== ENCOUNTER 2023-05-22 08:10 | Emergency (ER) | payer MEDICARE, SELFPAY ==
--- NOTE | 2023-05-22 08:18 | ED.GENADULT ---
HPI - General Adult General Chief complaint: Urogenital-Female Stated complaint: Poss Uti Source: patient, RN notes reviewed and old records reviewed Mode of arrival: ambulatory Limitations: no limitations History of Present Illness HPI narrative: 68-year-old female presents to [facility] with complaint of burning with urination and constant pressure to urinate that started Friday. He states he gets frequent UTIs. Patient denies any other symptoms. MD complaint: Burning with urination Onset (ago): day(s) (2) Related Data Home Medications Medication Instructions Recorded Confirmed cholecalciferol (vitamin D3) 50 50 mcg PO DAILY 07/02/19 01/31/23 mcg (2,000 unit) capsule magnesium oxide 400 mg PO DAILY 06/30/20 01/31/23 Lactobacillus acidophilus 250 500 mmu cells PO DAILY 09/15/20 01/31/23 million cell capsule (Probiotic Acidophilus) glucosamine sulfate 500 mg tablet 500 mg PO BID 06/05/21 01/31/23 (Glucosamine) Allergies Allergy/AdvReac Type Severity Reaction Status Date / Time No Known Allergies Allergy Verified 02/14/23 08:03 Review of Systems Constitutional: Constitutional: Reports no additional constitutional complaints, Denies body ache(s), Denies chills, Denies fatigue, Denies fever(s) and Denies headache(s) Eyes: Eyes: Reports no additional eye complaints and Denies blurry vision ENT: Reports system reviewed and no additional complaints, except as documented, Denies vertigo, Denies dizziness, Denies ear discharge, Denies otalgia, Denies facial pain, Denies headache(s), Denies nasal congestion, Denies nasal discharge, Denies sinus pain, Denies sinus pressure and Denies sore throat Cardiovascular: Cardiovascular: Reports no additional cardiovascular complaints, Denies chest pain, Denies chest pain at rest, Denies rapid heart rate and Denies dyspnea Respiratory: Respiratory: Reports no additional respiratory complaints, Denies chest congestion, Denies cough, Denies pain on inspiration, Denies pain with cough and Denies dyspnea Gastrointestinal: Gastrointestinal: Denies abdominal pain, Denies diarrhea, Denies nausea and Denies vomiting Genitourinary: Genitourinary: Reports nocturia, Reports dysuria and Reports other ( constant urge to urinate) Integumentary/Breasts: Skin/Breast: Denies rash Neurologic: Reports system reviewed and no additional complaints, except as documented, Denies vertigo, Denies dizziness and Denies headache(s) Endocrine: Endocrine: Denies fatigue PMFSH Past Medical History Medical History Breast implant removal status Combined hyperlipidemia Dislocation of right shoulder joint Essential (primary) hypertension History of breast cancer History of diverticulitis (~07/2017) Perforated diverticulitis. Hypothyroidism, unspecified Overactive bladder Vitamin D deficiency Surgical History Surgical History History of arthroscopy of right shoulder Patient reports large rotator cuff tear which was unable to be repaired. She also had bone spurs removed. History of bladder suspension procedure (~07/2020) Sacral colpopexy and transobturator sling for urinary incontinence. History of laparoscopy (~07/2017) With peritoneal irrigation and drain placement for perforated diverticulitis. History of left mastectomy History of tubal ligation Family History Family History Mother Hypertension Father Family history of celiac disease Other Family history of neuropathy Social History Social History Social History: Surrogate decision maker: Gary Woodson, . Code status: Full code. Smoking status: Never smoker Alcohol intake: never Substance use: never Substance use type: does not use Lack of Transportation: No Lack of Food: Never Alireza
[2023-05-22 08:21] VITALS: BP 153/92; PULSE 78; RESP 18; TEMP 36.8; O2SAT 96
== END 2023-05-22 08:46 | disposition home or self-care (01) ==
PROVIDERS: Emergency Provider Registered Nurse; PCP Nurse Practitioner
DX: N30.01 Acute cystitis with hematuria (principal); B96.1 Klebsiella pneumoniae [K. pneumoniae] as the cause of diseases classified elsewhere; I10 Essential (primary) hypertension; E03.9 Hypothyroidism, unspecified; E78.2 Mixed hyperlipidemia; E55.9 Vitamin D deficiency, unspecified; Z85.3 Personal history of malignant neoplasm of breast; Z90.12 Acquired absence of left breast and nipple
CPT/HCPCS: 81003; 87077; 87086; 87186; 99213; G0463

== ENCOUNTER → 2023-06-13 10:38 | Outpatient (CLI) | payer MEDICARE, SELFPAY ==
--- NOTE | ~2023-06-13 | MM_ITS ---
EXAMINATION: MM screening deborah RT w smooth HISTORY: Screening TECHNIQUE: Craniocaudal and mediolateral oblique 3-D tomosynthesis images were obtained and synthetic 2-D images were generated. CAD analysis was submitted and interpreted. COMPARISON: Comparison to multiple prior studies sequentially, with oldest reviewed study dated 07/2016. BREAST PARENCHYMAL COMPOSITION: Not dense: There are scattered areas of fibroglandular density. FINDINGS: There is no evidence of suspicious mass, calcification, or architectural distortion to sugg est malignancy in the right breast. There has been no suspicious interval change. IMPRESSION: 1. No mammographic evidence of malignancy. 2. Recommend routine screening mammography in one year. BI-RADS Category 1: Negative Reviewed, dictated and finalized at location A. [employer]
== END ==
PROVIDERS: PCP Family Medicine; Visit Provider Nurse Practitioner Family
DX: Z12.31 Encounter for screening mammogram for malignant neoplasm of breast (principal)
CPT/HCPCS: 77063; 77067

== ENCOUNTER 2023-07-25 10:56 | Outpatient (CLI) | payer MEDICARE, SELFPAY ==
--- NOTE | ~2023-07-25 | DEXA_ITS ---
Bone Density Report Name: REBECCA ROSADO Age: 68 Sex: Female Ethnicity: White Date of : 1955 Indication: postmenopausal; screening for osteoporosis; prior fracture; hysterectomy; Referring Provider: KAYLEEN GODDARD Study: Bone densitometry was performed. Exam Date: July 25, 2023 Accession number: [id number] Bone Density: Region BMD T-score Z-score Classification AP Spine (L1-L4) 0.863 -1.7 0.4 Osteopenia Femoral Neck (Left) 0.677 -1.5 0.2 Osteopenia Total Hip (Left) 0.769 -1.4 0.0 Osteopenia Femoral Neck (Right) 0.683 -1.5 0.3 Osteopenia Total Hip (Right) 0.780 -1.3 0.1 Osteopenia Total Hip Mean 0.775 -1.4 0.1 Osteopenia World Health Organization criteria for BMD impression classify patients as: Normal (T-score at or above -1.0), Osteopenia (T-score between -1.0 and -2.5), or Osteoporosis (T-score at or below -2.5). 10-year Fracture Risk(1): Major Osteoporotic Fracture 15% Hip Fracture 2.0% Reported Risk Factors: [place] (), Neck BMD=0.683, BMI=28.7, previous fracture (1) FRAX(R) Version 3.08. Fracture probability calculated for an untreated patient. Fracture probability may be lower if the patient has received treatment. Clinical Information Provided by Patient: Has had a low trauma fracture Has used the following medications: Vitamin D, LEVOTHYROXINE Has the following medical conditions: Hysterectomy, HX OF LEFT BREAST CA MASTECTOMY 1996 Patient maximum height was 61.0 Menopause Age: 51 No regular weight bearing exercise Drinks caffeinated beverages Onset of menses at age 14 Number of children 2 Impression: The patient has low bone mass, based on the Total Spine T-score. The patient has an estimated ten-year risk of hip fracture of 2% and an estimated ten-year risk of major fracture of 15%, based on the WHO FRAX algorithm. The patient has risk factors, including: previous fracture. Discussion: BONE DENSITY IS LOW AT ONE OR MORE SKELETAL SITES. This patient's lowest T-score is low at one or more skeletal sites. It meets the World Health Organization's (WHO) criteria for ?low bone mass? (T-score between -1.0 and -2.5). The patient's 10-year risk of fracture as calculated by FRAX is less than the threshold where pharmacological therapy is recommended by the National Osteoporosis Foundation (NOF). However, all treatment decisions require clinical judgment and consideration of individual patient factors, including patient preferences, comorbidities, previous drug use, risk factors not captured in the FRAX model (e.g., frailty, falls, vitamin D deficiency, increased bone turnover, interval significant decline in bone density) and possible under or overestimation of fracture risk by FRAX. The patient should follow a healthful lifestyle (good nutrition with adequate calcium and vitam
== END 2023-07-25 10:57 ==
PROVIDERS: PCP Nurse Practitioner Family; Visit Provider Nurse Practitioner Family
DX: M85.89 Other specified disorders of bone density and structure, multiple sites (principal); Z78.0 Asymptomatic menopausal state; Z13.820 Encounter for screening for osteoporosis
CPT/HCPCS: 77080

== ENCOUNTER 2023-07-25 12:38 | Outpatient (CLI) | payer MEDICARE, SELFPAY ==
[2023-07-25 14:34] LABS: Alanine Aminotransferase 24 U/L (6-35); Albumin Level 4.2 g/dL (3.5-5.1); Alkaline Phosphatase 60 U/L (38-126); Anion Gap 5 mmol/L (8-16); Aspartate Amino Transferase 45 U/L (14-36); Bilirubin,Total 0.5 mg/dL (0.2-1.3); Blood Urea Nitrogen 24 mg/dL (7-17); Calcium 9.7 mg/dL (8.4-10.2); Carbon Dioxide 28 mmol/L (22-30); Chloride 108 mmol/L (98-107); Cholesterol 192 mg/dL (0-200); Estimated Glomerular Filt Rate > 60; Glucose 127 mg/dL (65-110); HDL Direct 45 mg/dL; Potassium 4.5 mmol/L (3.4-5.0); Sodium 141 mmol/L (137-145); Triglycerides 211 mg/dL (<150)
[2023-07-25 14:46] LABS: LDL Cholesterol Direct 110 mg/dL
[2023-07-25 15:03] LABS: Basophils Percent Auto 0.7 % (0.2-1.2); Eosinophils Absolute Auto 0.2 K/mm3 (0-0.3); Eosinophils Percent Auto 4.4 % (0-4.4); Hematocrit 38.6 % (37.0-47.0); Hemoglobin 12.1 g/dL (12.0-15.0); Immature Granulocyte Absolute 0.01 K/mm3 (0.00-0.031); Immature Granulocyte Percent A 0.2 % (0-0.5); Lymphocytes Absolute Auto 0.94 K/mm3 (0.9-3.2); Mean Corpuscular HGB Conc 31.3 g/dl (32-36); Mean Corpuscular Hemoglobin 30.9 pg (26-34); Mean Corpuscular Volume 98.7 fl (80-100); Mean Platelet Volume 10.4 fl (7.4-10.4); Monocytes Absolute Auto 0.4 K/mm3 (0.1-0.6); Monocytes Percent Auto 9.6 % (2.6-8.5); Neutrophils Absolute Auto 2.7 K/mm3 (1.3-6.7); Neutrophils Percent Auto 63.1 % (45.5-73.1); Platelet Count Result 236 k/mm3 (150-375); Red Blood Count 3.91 M/mm3 (4.2-5.4); Red Cell Distribution Width 12.1 % (11.5-14.5); White Blood Count 4.3 K/mm3 (4.5-10.0)
[2023-07-25 16:00] LABS: Hemoglobin A1C 5.7 % (<5.7)
[2023-07-29 13:45] LABS: Vitamin D 1,25 (OH)2 Total 35 pg/mL (18-72); Vitamin D2 1,25 (OH)2 <8 pg/mL; Vitamin D3 1,25 (OH)2 35 pg/mL
== END 2023-07-25 12:39 | disposition home or self-care (01) ==
PROVIDERS: Nurse Practitioner Family; PCP Nurse Practitioner Family; Visit Provider Nurse Practitioner Family
DX: D64.9 Anemia, unspecified (principal); E03.9 Hypothyroidism, unspecified; I10 Essential (primary) hypertension; R73.03 Prediabetes; E55.9 Vitamin D deficiency, unspecified
CPT/HCPCS: 36415; 80053; 80061; 82652; 83036; 84443; 85025

== ENCOUNTER 2023-10-11 10:10 | Emergency (ER) | payer MEDICARE, SELFPAY ==
[2023-10-11 10:14] VITALS: BP 146/80; PULSE 67; RESP 20; TEMP 36.7; O2SAT 100
--- NOTE | 2023-10-11 10:36 | ED.FEMALEGU ---
HPI - Female Genitourinary General Chief complaint: Urogenital-Female Stated complaint: uti Time Seen by Provider: 10/11/23 10:36 Source: patient and RN notes reviewed Mode of arrival: ambulatory Limitations: no limitations History of Present Illness HPI Narrative: 68-year-old female presented for complaint of burning and pressure with urination. Onset yesterday. denies hematuria, nausea, vomiting, abdominal pain, flank pain, constipation, diarrhea, fevers or chills. hx bladder surgery Related Data Home Medications Medication Instructions Recorded Confirmed magnesium oxide 400 mg PO DAILY 06/30/20 09/05/23 calcium carbonate 600 mg PO BID 07/30/23 09/05/23 cholecalciferol (vitamin D3) 125 125 mcg PO DAILY 07/30/23 09/05/23 mcg (5,000 unit) capsule Allergies Allergy/AdvReac Type Severity Reaction Status Date / Time No Known Allergies Allergy Verified 09/05/23 08:50 Review of Systems Review of Systems: CONSTITUTIONAL: Denies body aches, fever, chills, or sweats. CARDIOVASCULAR: Denies chest pain, palpitations, or edema. RESPIRATORY: Denies cough or dyspnea. GASTROINTESTINAL: Denies abdominal pain, nausea, vomiting, or diarrhea. GENITOURINARY: Reports dysuria, frequency, denies urgency, hematuria, flank pain SKIN: Denies rash, itching, or wounds. MUSCULOSKELETAL: Denies back pain or myalgia. [facility] Past Medical History Medical History Acute arthritis Breast implant removal status Combined hyperlipidemia Dislocation of right shoulder joint Essential (primary) hypertension History of breast cancer History of diverticulitis (~07/2017) Perforated diverticulitis. Hypothyroidism, unspecified Overactive bladder Vitamin D deficiency Surgical History Surgical History History of arthroscopy of right shoulder Patient reports large rotator cuff tear which was unable to be repaired. She also had bone spurs removed. History of bladder suspension procedure (~07/2020) Sacral colpopexy and transobturator sling for urinary incontinence. History of laparoscopy (~07/2017) With peritoneal irrigation and drain placement for perforated diverticulitis. History of left mastectomy History of tubal ligation Family History Family History Mother Hypertension Father Family history of celiac disease Other Family history of neuropathy Social History Social History Social History: Surrogate decision maker: Gary Woodson, . Code status: Full code. 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 Gender identity (if verbalized by the patient): Female Sexual Orientation (if Verbalized by the Patient): Straight or Heterosexual Spiritual care concerns: No Agree to blood products: Yes Comments At time of signature, I have reviewed and agree with nursing past medical, surgical, social and family history unless otherwise noted. Please see nursing chart for further information. There is no relevant family history pertinent to the presenting complaint Exam Narrative: GENERAL: Well-appearing and in no acute distress. ENT: Mucous membranes pink and moist. CHEST: No respiratory distress. Clear to auscultation.
== END 2023-10-11 10:46 | disposition home or self-care (01) ==
PROVIDERS: Emergency Provider Nurse Practitioner Family; PCP Nurse Practitioner Family
DX: N39.0 Urinary tract infection, site not specified (principal); B96.20 Unspecified Escherichia coli [E. coli] as the cause of diseases classified elsewhere; I10 Essential (primary) hypertension; E03.9 Hypothyroidism, unspecified; M19.90 Unspecified osteoarthritis, unspecified site; E78.2 Mixed hyperlipidemia; E55.9 Vitamin D deficiency, unspecified; Z85.3 Personal history of malignant neoplasm of breast; Z90.12 Acquired absence of left breast and nipple
CPT/HCPCS: 81003; 87077; 87086; 87088; 87186; 99213; G0463

== ENCOUNTER 2024-02-06 09:03 | Emergency (ER) | payer MEDICARE, SELFPAY ==
[2024-02-06 09:08] VITALS: BP 140/75; PULSE 76; RESP 16; TEMP 36.7; O2SAT 98
--- NOTE | 2024-02-06 10:03 | ED.FEMALEGU ---
HPI - Female Genitourinary General Chief complaint: Urogenital-Female Stated complaint: Urinary Problem Time Seen by Provider: 02/06/24 09:58 Source: patient and RN notes reviewed Mode of arrival: ambulatory Limitations: no limitations History of Present Illness HPI Narrative: Patient presents today complaining of dysuria, frequency, and suprapubic pressure that started in the middle of the night last night. Denies any additional symptoms. No [id number] treatment prior to arrival. Patient's last UTI was in October and she was treated with Augmentin. Related Data Home Medications Medication Instructions Recorded Confirmed magnesium oxide 400 mg PO DAILY 06/30/20 02/06/24 calcium carbonate 600 mg PO BID 07/30/23 02/06/24 cholecalciferol (vitamin D3) 125 125 mcg PO DAILY 07/30/23 02/06/24 mcg (5,000 unit) capsule Allergies Allergy/AdvReac Type Severity Reaction Status Date / Time No Known Allergies Allergy Verified 02/06/24 09:31 Review of Systems Review of Systems: CONSTITUTIONAL: Denies body aches, fever, chills, or sweats. EYES: Denies visual changes, redness, or discharge. ENT: Denies rhinorrhea, congestion, sore throat, or otalgia. CARDIOVASCULAR: Denies chest pain, palpitations, or edema. RESPIRATORY: Denies cough or dyspnea. GASTROINTESTINAL: Denies nausea, vomiting, or diarrhea.+ suprapubic pressure GENITOURINARY:+ dysuria, frequency. SKIN: Denies rash, itching, or wounds. MUSCULOSKELETAL: Denies back pain, joint pain, or myalgia. NEUROLOGIC: Denies headache, numbness, tingling, or weakness. PSYCH: Denies depression or anxiety. [facility] Past Medical History Medical History Acute arthritis Breast implant removal status Combined hyperlipidemia Dislocation of right shoulder joint Essential (primary) hypertension History of breast cancer History of diverticulitis (~07/2017) Perforated diverticulitis. Hypothyroidism, unspecified Overactive bladder Vitamin D deficiency Surgical History Surgical History History of arthroscopy of right shoulder Patient reports large rotator cuff tear which was unable to be repaired. She also had bone spurs removed. History of bladder suspension procedure (~07/2020) Sacral colpopexy and transobturator sling for urinary incontinence. History of laparoscopy (~07/2017) With peritoneal irrigation and drain placement for perforated diverticulitis. History of left mastectomy History of tubal ligation Family History Family History Mother Hypertension Father Family history of celiac disease Other Family history of neuropathy Social History Social History Social History: Surrogate decision maker: Gary Woodson, . Code status: Full code. 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 Gender identity (if verbalized by the patient): Female Sexual Orientation (if Verbalized by the Patient): Straight or Heterosexual Spiritual care concerns: No Agree to blood products: Yes Comments At time of signature, I have reviewed and agree with nursing past medical, surgical, social and family history unless otherwise noted. Please see nursing c
[2024-02-09 14:24] LABS: EDUAAPPEAR Clear; EDUABILI Negative (Negative); EDUABLOOD Negative (Negative); EDUACOLOR1 Yellow; EDUAGLUCOSE Negative (Negative); EDUAKETONE Negative (Negative); EDUALEUKO 2+ (Negative); EDUANITRATE Negative (Negative); EDUAPROTEIN Negative (Negative); EDUAUROBILI 0.2
== END 2024-02-06 10:07 | disposition home or self-care (01) ==
PROVIDERS: Emergency Provider Nurse Practitioner; PCP Family Medicine
DX: N30.00 Acute cystitis without hematuria (principal); B96.20 Unspecified Escherichia coli [E. coli] as the cause of diseases classified elsewhere; I10 Essential (primary) hypertension; E03.9 Hypothyroidism, unspecified; E55.9 Vitamin D deficiency, unspecified; E78.2 Mixed hyperlipidemia; Z85.3 Personal history of malignant neoplasm of breast; Z90.12 Acquired absence of left breast and nipple
CPT/HCPCS: 81003; 87077; 87086; 87088; 87186; 99213; G0463

== ENCOUNTER 2024-06-18 09:59 | Outpatient (CLI) | payer MEDICARE, SELFPAY ==
--- NOTE | ~2024-06-18 | MM_ITS ---
EXAMINATION: MM screening deborah RT w smooth HISTORY: Screening mammogram TECHNIQUE: Craniocaudal and mediolateral oblique 3-D tomosynthesis images were obtained and synthetic 2-D images were generated. CAD analysis was submitted and interpreted. COMPARISON: 06/13/2023, 03/08/2022, 12/01/2020 BREAST PARENCHYMAL COMPOSITION:Not Dense. There are scattered areas of fibroglandular density. FINDINGS: No suspicious mass, calcification, or architectural distortion are identified in either gorge ast to suggest malignancy. There has been no suspicious interval change. IMPRESSION: No mammographic evidence of malignancy. Recommend routine screening mammography in one year. BI-RADS Category 1: Negative Reviewed, dictated and finalized at location . [employer] DEVEL[employer]CH[employer]
== END 2024-06-18 10:00 | disposition home or self-care (01) ==
LOC: MICIMG 10:00
PROVIDERS: PCP Family Medicine; Visit Provider Family Medicine
DX: Z12.31 Encounter for screening mammogram for malignant neoplasm of breast (principal)
CPT/HCPCS: 77063; 77067

== ENCOUNTER 2025-04-15 10:00 | Outpatient (CLI) | payer MEDICARE, SELFPAY ==
[2025-04-15 12:53] LABS: Hematocrit 33.2 % (37.0-47.0); Hemoglobin 10.7 g/dL (12.0-15.0); Immature Granulocyte Percent A 0.2 % (0-0.5); Lymphocytes Absolute Auto 1.24 K/mm3 (0.9-3.2); Mean Corpuscular HGB Conc 32.2 g/dl (32-36); Mean Corpuscular Hemoglobin 31.1 pg (26-34); Mean Corpuscular Volume 96.5 fl (80-100); Nucleated Red Blood Cells Absolute Auto 0.000 K/mm3 (0.0-0.012); Nucleated Red Blood Cells Perc 0.0 % (0.0-0.2); Platelet Count Result 227 k/mm3 (150-375); Red Blood Count 3.44 M/mm3 (4.2-5.4); White Blood Count 5.2 K/mm3 (4.5-10.0)
[2025-04-15 14:16] LABS: Hemoglobin A1C 5.3 % (<5.7)
[2025-04-15 15:19] LABS: Alanine Aminotransferase 28 U/L (6-35); Albumin Level 4.1 g/dL (3.5-5.1); Alkaline Phosphatase 56 U/L (38-126); Anion Gap 5 mmol/L (4-12); Aspartate Amino Transferase 40 U/L (14-36); Bilirubin,Total 0.6 mg/dL (0.2-1.3); Blood Urea Nitrogen 44 mg/dL (7-17); Calcium 9.6 mg/dL (8.4-10.2); Carbon Dioxide 26 mmol/L (22-30); Chloride 109 mmol/L (98-107); Cholesterol 187 mg/dL (0-200); Estimated Glomerular Filt Rate 32; Glucose 81 mg/dL (65-110); HDL Direct 41 mg/dL; Potassium 4.8 mmol/L (3.4-5.0); Sodium 140 mmol/L (137-145); Total Protein 6.9 g/dL (6.3-8.2); Triglycerides 105 mg/dL (<150)
[2025-04-15 15:45] LABS: Thyroid Stimulating Hormone Reflex 0.451 uIU/mL (0.465-4.68)
[2025-04-15 17:03] LABS: Free T4 Free Thyroxine Reflex 1.52 ng/dL (0.78-2.19)
[2025-04-15 17:54] LABS: Total Triiodothyronine (T3) 1.12 NG/ML (0.82-1.58)
== END 2025-04-15 10:01 | disposition home or self-care (01) ==
LOC: ANHGOSHLAB 10:00
PROVIDERS: PCP Nurse Practitioner Family; Visit Provider Nurse Practitioner Family
DX: E03.9 Hypothyroidism, unspecified (principal); R73.01 Impaired fasting glucose; I10 Essential (primary) hypertension; E55.9 Vitamin D deficiency, unspecified
CPT/HCPCS: 36415; 80053; 80061; 82306; 83036; 84439; 84443; 84480; 85025